=== PATIENT | male | born 1935 | race Caucasian/White ===

== ENCOUNTER 2016-11-08 13:52 | Emergency (ER) | payer OTHER ==
[~2016-11-08] VITALS: Ht 180.3 cm; Wt 89.1 kg
[~2016-11-08 13:52] MED LIST: ASPI81TA28 PO; ATEN-173 PO; CLC100X PO; KRIL1CAP2; LCTX PO; LPT/40 PO; LVQ250 PO; METF-384 PO; MULT-190 PO; SALI0.6510 NAE; TMF75 PO; [UNRECOGNIZED DRUG - CODE] PO
[2016-11-08 13:57] VITALS: TEMP 36.4; Ht 180.3 cm; Wt 89.1 kg
[2016-11-08] MEDS ORDERED: TMPOPS15 OPB (14:25)
[2016-11-08] MEDS ORDERED: XYLOCAINE 1%/SOD BICARB 20 ML VIAL INFIL ONE (14:30)
[2016-11-08 15:14] VITALS: BP 131/86; PULSE 79; O2SAT 96
--- NOTE | 2016-11-09 21:19 | EMERGENCY ROOM VISIT NOTE ---
ED Visit Note First contact with patient: 14:20 Chief Complaint: Right elbow laceration. History of Present Illness: Mr. Rae is an 80-year-old white male who ambulates into the ED accompanied by his complaining of a posterior left elbow laceration. Patient reports approximately one hour ago he was walking backwards in his garage, tripped and fell while picking something up and landed on his right elbow causing a laceration. He reports before the fall he was not experiencing any lightheadedness or dizziness, the time of the fall he believes he had a glancing blow to the back of his head but did not have loss of consciousness and since the injury he has had no signs of head. Before arrival at the hospital his did control bleeding of his laceration but did not wash the wound. He is not having any pain or symptoms related to the laceration and he denies headache, dizziness, lightheadedness, visual changes, hearing changes, difficulty speaking, difficulty swallowing, difficulty ambulating/coronary body movements, neck pain, back pain, nausea, vomiting, extremity weakness/numbness/ tingling. Review of Systems: As noted above in history of present illness. 8 body systems were reviewed and found to be negative as noted above. Past Medical History: Diabetes, kidney disease, glaucoma, frequent UTIs. Current Medications: Glucophage, atenolol, fosinopril, ocuvite, Lipitor, aspirin , timolol. Allergies to Medications: Cipro. Social History: Patient is currently retired; he lives with his and feels safe in his home environment; he denies tobacco and alcohol use. Tetanus Immunization Status: Patient was unsure of tetanus status and when I offered refused obtaining. Physical Examination: Vital Signs: Date Time Temp Pulse Resp B/P Pulse Ox O2 Delivery O2 Flow Rate FiO2 11/08/16 15:14 79 16 131/86 96 11/08/16 13:57 36.4 74 24 118/78 95 Room Air GENERAL: 80-year-old male in no acute distress, nontoxic-appearing, afebrile and hemodynamically NEUROLOGICAL: Awake, alert and oriented to person, place and time. Answering questions appropriately and following commands. Normal gait. Good hand eye coordination. No focal motor sensory deficits. Cranial nerves II through grossly intact. Short-term and long-term recall. SKIN: Warm, dry and pink. Left Elbow: Over the olecranon process patient has a 2.8 cm full-thickness laceration. HEENT: Atraumatic and normocephalic. Skull: No bony deformity, depressions, tenderness, swelling or ecchymosis. No raccoon's eyes or kerns signs. No drainage from ears and air; no hemotympanum. PERRLA. EOMI without nystagmus. Sclera white and conjunctiva pink. No malocclusion. No intraoral trauma. Airway patent. BACK: No tenderness over the bony cervical and thoracic spine. Full range of motion of the cervical spine. LEFT UPPER EXTREMITY: No gross bony deformities. No tenderness throughout the shoulder, upper arm, elbow, forearm or wrist. Laceration over the posterior elbow as noted above. Full range of motion in all movements of the shoulder, elbow, forearm and wrist. All distal neurovascular statuses are intact and equal bilaterally. ED Course: Patient is assessed as noted above. Wound Repair: Complexity: Basic Verbal consent was obtained after the risks and benefits were explained. The skin was prepped with betadine and a sterile field set. Wound edges of the wound was anesthetized with 2.1 ml buffered 1% lidocaine. The wound was explored for foreign bodies and none found. Copious irrigation was performed using sterile saline. With direct pressure the bleeding subsided. Debridement was not performed. The wound edges were approximated using 5-0 Ethilon with 5 simple interrupted sutures. Hemostasis and excellent approximation was achieved. Antibacterial ointment and a sterile dressing applied. No complications and the patient tolerated the procedure well. Patient was educated about tonight's findings and instructed on his treatment plan; he verbalizes understanding and agreement with this plan. Clinical Impression: Laceration of the posterior elbow. Status post fall. Disposition: Patient discharged home in stable condition; prior to departure he was reassessed and subjectively reported pain and symptom-free. Plan: Comfort measures, wound care, signs of infection and signs of head injury were discussed with the patient and his Patient was encouraged to follow-up with personal physician or return ED for signs of infection and/or suture removal in 10-12 days. Patient was encouraged return the ED for any signs of head injury or any new/ concerning symptoms.
--- NOTE | 2016-11-12 09:38 | EDITING REQUIRED CODING QUERY ---
CODING QUERY To promote full compliance with coding requirements relating to patient care, provider participation is requested in all cases of embroiderer uncertainty. Please assist us with the question(s) below: Coding Question(s): Please clarify below, due to conflicting documentation, the laterality of the elbow laceration. ( x ) Right Elbow Laceration ( ) Left Elbow Laceration Physician's Response(s): Thank you Shirin Zamora Principal Diagnosis: "_that condition established after study, to be chiefly responsible for occasioning the admission of the patient to the hospital for care." Co-Existing Principal Diagnosis: "_when two or more diagnoses equally meet the criteria for principal diagnosis as determined by the circumstances of admission, diagnostic work up, and/or therapy provided, and the Alphabetic Index, Tabular List, or another coding guideline does not provide sequencing direction, any one of the diagnoses may be sequenced first." "When the physician has documented what appears to be a current diagnosis in the body of the record, but has not included the diagnosis in the final diagnostic statement, the physician should be asked whether the diagnosis should be added." (Source [facility] 2 QTR90. p3-4)
== END 2016-11-08 15:15 | disposition home or self-care (01) ==
LOC: C.EDB 13:54 → C.EDD 15:15
DX: S51.011A Laceration without foreign body of right elbow, initial encounter (principal); E11.9 Type 2 diabetes mellitus without complications; H40.9 Unspecified glaucoma; Z79.899 Other long term (current) drug therapy; Z79.84 Long term (current) use of oral hypoglycemic drugs; Z79.82 Long term (current) use of aspirin; W01.0XXA Fall on same level from slipping, tripping and stumbling without subsequent striking against object, initial encounter; Y93.01 Activity, walking, marching and hiking; Y92.018 Other place in single-family (private) house as the place of occurrence of the external cause; Y99.8 Other external cause status

== ENCOUNTER → 2017-04-16 | Outpatient (CLI) | payer OTHER ==
[~2017-04-16] MED LIST changes: -CLC100X PO; -LCTX PO; -LVQ250 PO; -TMF75 PO; +TMPOPS15 OPB
== END | disposition home or self-care (01) ==
LOC: C.LAB 10:37
PROVIDERS: ATTEND Urology
DX: C61 Malignant neoplasm of prostate (principal); N40.1 Benign prostatic hyperplasia with lower urinary tract symptoms; R35.1 Nocturia

== ENCOUNTER → 2017-08-28 | Outpatient (CLI) | payer OTHER | END | disposition home or self-care (01) | LOC: C.LAB 09:33 | PROVIDERS: ATTEND Nurse Practitioner Adult Health | DX: N39.0 Urinary tract infection, site not specified (principal) ==

== ENCOUNTER → 2018-01-22 | Outpatient (CLI) | payer OTHER | END | disposition home or self-care (01) | LOC: C.LAB 11:01 | PROVIDERS: ATTEND Urology | DX: R35.1 Nocturia (principal); R32 Unspecified urinary incontinence; N39.0 Urinary tract infection, site not specified ==

== ENCOUNTER 2023-06-24 20:34 | Inpatient (IN) ==
[2023-06-24] MEDS ORDERED: LIDOCAINE 1%/EPINEPHRINE 1:100,000 50 ML VIAL INFIL ONE (21:34)
[2023-06-24] MEDS ORDERED: LIDOCAINE 1%/EPINEPHRINE 1:100,000 20 ML VIAL INFIL STA (21:44)
[2023-06-24] MEDS ORDERED: SODIUM CHLORIDE 0.9% 500 ML IV SCH (21:45)
[2023-06-24 21:54] LABS: Basophils # (auto) 0.05 K/uL (0.00-0.20); Basophils % (auto) 0.3 %; Eosinophils # (auto) 0.17 K/uL (0.00-0.50); Eosinophils % (auto) 1.1 %; Hematocrit (blood only) 33.4 % (42.0-52.0); Immature Granulocytes % (auto) 0.7 %; Lymphocytes # (auto) 3.35 K/uL (1.20-3.40); Lymphocytes % (auto) 22.1 %; Mean Corpuscular Hemoglobin 29.1 pg (25.0-34.0); Mean Corpuscular Hgb Conc 32.9 g/dL (32.0-36.0); Mean Corpuscular Volume 88.4 fL (80.0-100.0); Mean Platelet Volume 9.7 fL (9.4-12.4); Monocytes # (auto) 1.92 K/uL (0.11-0.59); Monocytes % (auto) 12.7 %; Neutrophils # (auto) 9.56 K/uL (1.40-6.50); Neutrophils % (auto) 63.1 %; Platelet Count 369 K/uL (130-400); RDW Coefficient of Variation 12.7 % (11.5-14.5); RDW Standard Deviation 41.1 fL (36.4-46.3); Red Blood Count 3.78 M/uL (4.70-6.10); White Blood Count 15.15 K/ul (4.8-10.8)
[2023-06-24 22:13] LABS: Albumin Globulin Ratio 0.8 (0.9-2); Albumin Level 2.7 gm/dl (3.4-5.0); BUN Creatinine Ratio 18.4 (10-20); Bilirubin,Total 0.4 mg/dl (0.2-1.0); Calcium 8.3 mg/dl (8.6-10.3); Est GFR (African American) 74.8 ml/min; Est GFR (Non-African American) 64.6 ml/min; Globulin 3.6 gm/dl (2.5-4.0); Magnesium 1.5 mg/dl (1.7-2.4); Potassium 4.1 mmol/L (3.5-5.1); Total Protein 6.3 gm/dl (6.0-8.3)
[2023-06-24 22:18] LABS: Troponin I High Sensitivity 9.7 pg/ml (0-20)
[2023-06-24 22:27] LABS: Thyroid Stimulating Hormone 5.235 uIu/ml (0.300-4.500)
[2023-06-24] MEDS ORDERED: DIPHTHERIA/TETANUS/PERTUSSIS Vaccine (Tdap, Age 7+yrs) 0.5mL SYR/VL IM ONE (23:15)
--- NOTE | 2023-06-24 23:15 | Emergency Department Note ---
History of Present Illness General Chief complaint: Fall Stated complaint: FALL w/ LAC TO BACK OF HEAD Time Seen by Provider: 06/24/23 21:29 History of Present Illness This 87-year-old male [facility] for evaluation of [facility]. Patient states he got lightheaded and collapsed and hit his head. Patient denies loss of conscious, headache, neck pain, back pain, chest pain, abdominal pain, fever, chills, flulike illness. He was hypotensive per EMS was given some fluids and his blood pressure did improve. He states he has been eating and drinking normally. Unknown tetanus. Home Medications Medication Instructions Recorded Confirmed Type atenolol 50 mg tablet PO 03/31/19 05/17/20 History atorvastatin 10 mg tablet (Lipitor) 10 mg PO DAILY 04/01/19 05/17/20 History fosinopril 10 mg tablet 10 mg PO DAILY 04/01/19 05/17/20 History metformin 500 mg tablet,extended 500 mg PO QPM 04/01/19 05/17/20 History release 24 hr multivitamin (Daily Multi-Vitamin 1 tab PO DAILY 04/01/19 05/17/20 History tablet) timolol maleate 0.25 % eye drops 1 drops ophthalmic (eye) BID 04/01/19 05/17/20 History doxycycline hyclate 100 mg tablet 100 mg PO BID 7 days #14 tabs 03/10/21 Rx Allergies Allergy/AdvReac Type Severity Reaction Status Date / Time Cipro Allergy Unknown RASH Verified 11/08/16 14:22 ciprofloxacin Allergy Unknown RASH Verified 05/17/20 08:22 Past Med/Surg History Medical History (Updated 06/24/23 @ 23:45 by Alis Pereira PA-C) Adenocarcinoma of prostate Enlarged prostate with lower urinary tract symptoms (LUTS) Laceration Male stress incontinence Nocturia Prostate cancer Urinary incontinence Urinary symptom or sign Surgical History No pertinent past surgical history Family History Other No pertinent family history in first degree relatives Social History Smoking Status: Never smoker marital status: Feels Safe at Home: Yes Review of Systems A total of 10 systems reviewed and were otherwise negative Physical Exam Vital Signs Vital Signs - 24 hr 06/24/23 21:17 06/24/23 20:52 06/24/23 21:00 Temperature 36.6 C Temperature Source Oral Pulse Rate 61 60 61 Pulse Rate [Apical] Respiratory Rate 15 17 19 Respiratory Effort / Characteristics Non-Labored Respiratory Depth Normal Respiratory Pattern Blood Pressure 99/56 L 84/46 L 85/52 L Blood Pressure [Left Arm] Blood Pressure Mean 70 58 63 Blood Pressure Mean [Left Arm] Blood Pressure Position [Left Arm] Pulse Oximetry 97 95 95 Oxygen Delivery Method Room Air Room Air Room Air Sepsis Recent Fever Within 48 Hours No Sepsis New/Unexplained Change in Mental Status N/A Sepsis Action Taken by Nursing No Action Required 06/24/23 21:15 06/24/23 21:30 06/24/23 21:45 Temperature Temperature Source Pulse Rate 64 62 60 Pulse Rate [Apical] Respiratory Rate 21 24 20 Respiratory Effort / Characteristics Respiratory Depth Respiratory Pattern Blood Pressure 99/56 L 98/57 L 102/56 L Blood Pressure [Left Arm] Blood Pressure Mean 70 70 71 Blood Pressure Mean [Left Arm] Blood Pressure Position [Left Arm] Pulse Oximetry 95 94 95 Oxygen Delivery Method Room Air Room Air Room Air Sepsis Recent Fever Within 48 Hours Sepsis New/Unexplained Change in Mental Status Sepsis Action Taken by Nursing 06/24/23 22:00 06/24/23 22:30 06/24/23 22:45 Temperature Temperature Source Pulse Rate 58 L 60 59 L Pulse Rate [Apical] Respiratory Rate 19 15 16 Respiratory Effort / Characteristics Respiratory Depth Respiratory Pattern Blood Pressure 97/57 L 98/59 L 101/56 L Blood Pressure [Left Arm] Blood Pressure Mean 70 72 71 Blood Pressure Mean [Left Arm] Blood Pressure Position [Left Arm] Pulse Oximetry 97 98 97 Oxygen Delivery Method Room Air Room Air Room Air Sepsis Recent Fever Within 48 Hours Sepsis New/Unexplained Change in Mental Status Sepsis Action Taken by Nursing 06/24/23 23:45 Temperature Temperature Source Pulse Rate Pulse Rate [Apical] 57 L Respiratory Rate 20 Respiratory Effort / Characteristics Non-Labored Respiratory Depth Normal Respiratory Pattern Regular Blood Pressure Blood Pressure [Left Arm] 115/62 Blood Pressure Mean Blood Pressure Mean [Left Arm] 79 Blood Pressure Position [Left Arm] Lying Pulse Oximetry 99 Oxygen Delivery Method Room Air Sepsis Recent Fever Within 48 Hours Sepsis New/Unexplained Change in Mental Status Sepsis Action Taken by Nursing PHYSICAL EXAM: VITALS: Vitals are noted on the nurse's note and reviewed by myself. Vital signs stable. GENERAL: Pleasant gentleman, in no acute distress, nondiaphoretic, well- developed well-nourished. SKIN: 3 cm posterior scalp laceration is gaping appears clean, the rest of the skin was without obvious lacerations or abrasions. Capillary reflex less than 2 seconds. HEAD: Normocephalic EARS: External auditory canals clear, tympanic membranes pearly ames without erythema or effusion bilaterally. No hemotympanums. No kerns sign. No mastoid tenderness. EYES: Pupils equal round and reactive to light and accommodation. Conjunctivae without injection, sclerae without icterus. Extraocular movements intact. NOSE: Patent, turbinates without inflammation or discharge. No sinus tenderness. No septal hematoma or bleeding. FACE: No facial bone tenderness. Full range of motion of the jaw without tenderness. MOUTH: Mucous membranes moist. Pharynx without erythema or exudate. Uvula midline. Airway patent. Tongue does not deviate. NECK: Supple without nuchal rigidity. Cervical spine is nontender. Full range of motion of the neck without tenderness. No JVD. HEART: Regular rate and rhythm LUNGS: Clear to auscultation bilaterally without wheezes, rales or rhonchi. No dullness to percussion. No retractions or accessory muscle use. No chest wall tenderness. ABDOMEN: Positive bowel sounds x 4. Normal tympanic percussion. Soft, n ontender, without masses or organomegaly. No guarding or rebound tenderness. MUSCULOSKELETAL: No tenderness of the thoracic or lumbar spine. No tenderness with pelvic rocking. Full range of motion without tenderness to palpation in all extremities. Strength 5/5 throughout. NEURO: Patient was alert and oriented to person place and time. Normal sensation to light and sharp touch. No focal neurological deficits. Course Administered Medications Magnesium Sulfate/Dextrose (Magnesium Sulfate / D5w) 1 gm in 100 mls @ 100 mls/hr IV Q1H DUY Stop: 06/25/23 01:17 Last Admin: 06/24/23 23:38 Dose: 100 mls/hr Documented By: BRJ Discontinued Medications Diphtheria/Pertussis/Tetanus Vacc (Diphtheria/Tetanus/Pertussis Vaccine (Tdap, Age 7+Yrs) 0.5ml Syr/Vl) 0.5 ml IM .ONCE ONE Stop: 06/24/23 23:16 Last Admin: 06/24/23 23:41 Dose: 0.5 ml Documented By: SITA Sodium Chloride (Nss) 500 mls @ 999 mls/hr IV .Q31M DUY Stop: 06/24/23 22:15 Last Admin: 06/24/23 21:48 Dose: 999 mls/hr Documented By: ALINA Lidocaine/Epinephrine (Lidocaine 1%/Epinephrine 1:100,000 20 Ml Vial) 5 ml INFIL NOW STA Stop: 06/24/23 21:45 Last Admin: 06/24/23 23:42 Dose: 5 ml Documented By: CELESTINA Medical Decision Making Medical Records Attestation: I reviewed the patient's medical records. Home Medications Current Medication List: was personally reviewed by me Laboratory Data Attestation: I reviewed the patient's lab results. 06/24/23 20:54 06/24/23 20:54 Lab Results 06/24/23 06/24/23 06/24/23 Range/Units 20:54 20:54 21:52 WBC 15.15 H (4.8-10.8) K/ul RBC 3.78 L (4.70-6.10) M/uL Hgb 11.0 L (14.0-18.0) g/dl Hct 33.4 L (42.0-52.0) % MCV 88.4 (80.0-100.0) fL MCH 29.1 (25.0-34.0) pg MCHC 32.9 (32.0-36.0) g/dL RDW Std Deviation 41.1 (36.4-46.3) fL RDW Coeff of Maya 12.7 (11.5-14.5) % Plt Count 369 (130-400) K/uL MPV 9.7 (9.4-12.4) fL Immature Gran % (Auto) 0.7 % Neut % (Auto) 63.1 % Lymph % (Auto) 22.1 % [place] % (Auto) 12.7 % Eos % (Auto) 1.1 % Baso % (Auto) 0.3 % Neut # (Auto) 9.56 H (1.40-6.50) K/uL Lymph # (Auto) 3.35 (1.20-3.40) K/uL [place] # (Auto) 1.92 H (0.11-0.59) K/uL Eos # (Auto) 0.17 (0.00-0.50) K/uL Baso # (Auto) 0.05 (0.00-0.20) K/uL Immature Gran # (Auto) 0.10 (0.01-0.20) K/uL Sodium 132 L (136-145) mmol/L Potassium 4.1 (3.5-5.1) mmol/L Chloride 101 (98-107) mmol/L Carbon Dioxide 24 (21-32) mmol/L Anion Gap 7 (3-11) BUN 19 (6-23) mg/dl Creatinine 1.03 (0.6-1.4) mg/dl Est Cr Clr Drug Dosing 52.0 ml/min Est GFR ( Amer) 74.8 ml/min Est GFR (Non-Af Amer) 64.6 ml/min BUN/Creatinine Ratio 18.4 (10-20) Glucose 248 H (70-99(Fasting)) mg/dl POC Glucose (70-99) mg/dl Calcium 8.3 L (8.6-10.3) mg/dl Magnesium 1.5 L (1.7-2.4) mg/dl Total Bilirubin 0.4 (0.2-1.0) mg/dl AST 15 (13-39) U/L ALT 13 (7-52) U/L Alkaline Phosphatase 97 (34-104) U/L Total Creatine Kinase 16 L (30-223) U/L Troponin I High Sens 9.7 (0-20) pg/ml Total Protein 6.3 (6.0-8.3) gm/dl Albumin 2.7 L (3.4-5.0) gm/dl Globulin 3.6 (2.5-4.0) gm/dl Albumin/Globulin Ratio 0.8 L (0.9-2) TSH 5.235 H (0.300-4.500) uIu/ml Free T4 0.91 (0.61-1.60) ng/dl Urine Color Urine Appearance (Clear) Urine pH (4.5-7.5) Ur Specific [place] (1.000-1.030) Urine Protein (Negative) Urine Glucose (UA) (Negative) Urine Ketones (Negative) Urine Blood (Negative) Urine Nitrite (Negative) Urine Bilirubin (Negative) Urine Urobilinogen (Negative) Ur Leukocyte Esterase (Negative) Urine WBC (Auto) (0-5) /hpf Urine RBC (Auto) (0-4) /hpf U Hyaline Cast (Auto) (0-5) /lpf U Epithel Cells (Auto) (0-5) /lpf Urine Bacteria (Auto) (Negative) SARS-CoV-2 (PCR) NEGATIVE (Negative) 06/24/23 06/24/23 Range/Units 23:21 23:30 WBC (4.8-10.8) K/ul RBC (4.70-6.10) M/uL Hgb (14.0-18.0) g/dl Hct (42.0-52.0) % MCV (80.0-100.0) fL MCH (25.0-34.0) pg MCHC (32.0-36.0) g/dL RDW Std Deviation (36.4-46.3) fL RDW Coeff of Maya (11.5-14.5) % Plt Count (130-400) K/uL MPV (9.4-12.4) fL Immature Gran % (Auto) % Neut % (Auto) % Lymph % (Auto) % [place] % (Auto) % Eos % (Auto) % Baso % (Auto) % Neut # (Auto) (1.40-6.50) K/uL Lymph # (Auto) (1.20-3.40) K/uL [place] # (Auto) (0.11-0.59) K/uL Eos # (Auto) (0.00-0.50) K/uL Baso # (Auto) (0.00-0.20) K/uL Immature Gran # (Auto) (0.01-0.20) K/uL Sodium (136-145) mmol/L Potassium (3.5-5.1) mmol/L Chloride (98-107) mmol/L Carbon Dioxide (21-32) mmol/L Anion Gap (3-11) BUN (6-23) mg/dl Creatinine (0.6-1.4) mg/dl Est Cr Clr Drug Dosing ml/min Est GFR ( Amer) ml/min Est GFR (Non-Af Amer) ml/min BUN/Creatinine Ratio (10-20) Glucose (70-99(Fasting)) mg/dl POC Glucose 205 H (70-99) mg/dl Calcium (8.6-10.3) mg/dl Magnesium (1.7-2.4) mg/dl Total Bilirubin (0.2-1.0) mg/dl AST (13-39) U/L ALT (7-52) U/L Alkaline Phosphatase (34-104) U/L Total Creatine Kinase (30-223) U/L Troponin I High Sens (0-20) pg/ml Total Protein (6.0-8.3) gm/dl Albumin (3.4-5.0) gm/dl Globulin (2.5-4.0) gm/dl Albumin/Globulin Ratio (0.9-2) TSH (0.300-4.500) uIu/ml Free T4 (0.61-1.60) ng/dl Urine Color Yellow Urine Appearance Turbid A (Clear) Urine pH 5.5 (4.5-7.5) Ur Specific [place] 1.008 (1.000-1.030) Urine Protein 1+ H (Negative) Urine Glucose (UA) Negative (Negative) Urine Ketones Negative (Negative) Urine Blood 1+ H (Negative) Urine Nitrite Positive A (Negative) Urine Bilirubin Negative (Negative) Urine Urobilinogen Negative (Negative) Ur Leukocyte Esterase 3+ H (Negative) Urine WBC (Auto) >30 H (0-5) /hpf Urine RBC (Auto) 0-4 (0-4) /hpf U Hyaline Cast (Auto) 1-5 (0-5) /lpf U Epithel Cells (Auto) 20-30 H (0-5) /lpf Urine Bacteria (Auto) Negative (Negative) SARS-CoV-2 (PCR) (Negative) Imaging Data Attestation: I personally reviewed and interpreted this imaging study as follows: Radiologist's Impression: Cervical Spine CT 06/24/23 21:34 Exam(s): CT C SPINE EXAM: CT Cervical Spine Without Intravenous Contrast CLINICAL HISTORY: Reason for exam: fall, HI. TECHNIQUE: Axial computed tomography images of the cervical spine without intravenous contrast. CTDI is 22.54 mGy and DLP is 527.17 mGy-cm. Automated exposure control was utilized for the study. A dose lowering technique was utilized adhering to the principles of ALARA. COMPARISON: None. FINDINGS: Vertebrae: No acute fracture. 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 No high-grade spinal canal stenosis. Soft tissues: Unremarkable. IMPRESSION: No acute fracture or traumatic malalignment of the cervical spine. Electronically signed by: Curtis Curran MD 06/24/23 23:[address] 06/24/23 21:34 Exam(s): CT HEAD Without Contrast EXAM: CT Head Without Intravenous Contrast CLINICAL HISTORY: Reason for exam: fall, HI. TECHNIQUE: Axial computed tomography images of the head/brain without intravenous contrast. CTDI is 37.61 mGy and DLP is 624.41 mGy-cm. Automated exposure control was utilized for the study. A dose lowering technique was utilized adhering to the principles of ALARA. COMPARISON: CT head 09/02/2014. FINDINGS: Brain: Global parenchymal volume loss with chronic microvascular ischemic changes. No hemorrhage. Ventricles: Ventriculomegaly likely related to parenchymal volume loss. Bones/joints: Unremarkable. No acute fracture. Soft tissues: Unremarkable. Vasculature: This indices in the calvarium may represent intraosseous low-flow venous malformations, not significantly changed from prior exam. Sinuses: Unremarkable as visualized. Mastoid air cells: Unremarkable as visualized. No mastoid effusion. IMPRESSION: 1. No intracranial hemorrhage or other acute intracranial abnormality. 2. Global parenchymal volume loss with chronic microvascular ischemic changes. Electronically signed by: Curtis Curran MD 06/24/23 23:56 PM MDM Narrative Prior records/ancillary studies reviewed and summarized above. Nursing notes reviewed. Additional history obtained from nursing. The patient's history was concerning for lightheadedness and fall. Differential diagnosis: Etiologies such as metabolic, infection, hypo/hyperglycemia, electrolyte abnormalities, cardiac sources, intracerebral event, toxicologic, neurologic, as well as others were entertained. Physical examination: As above. ER treatment provided: IV Lock An order was placed for continuous cardiac monitoring. The monitor shows a rate of 50-100 with a sinus rhythm per my interpretation. IV fluids Staple Repair Location: Scalp Total length: 3 cm Complexity: Simple Verbal consent was obtained after the risks and benefits were explained, including but not limited to bleeding, scarring, infection, pain, and bone/nerve damage. At this time, the risks of the procedure are less than the risks of NOT performing the procedure. A time out was taken and the correct patient and site identified. The scalp was prepped with betadine. The target area was anesthetized with 2 ml of 1% lidocaine without epinephrine. Copious irrigation was performed using saline. The skin was re-prepped with betadine, the hair cleared from the wound, and a sterile field set. The wound was explored for foreign bodies and none found. Debridement was not performed. The wound edges were approximated using 5 surgical francisco in the standard fashion. Hemostasis and excellent approximation was achieved. Antibacterial ointment and a sterile dressing applied. Detailed wound care instructions and signs and symptoms of infection reviewed with the pt. No complications and the patient tolerated the procedure well. I performed the procedure. Tetanus was given Magnesium was ordered Rocephin was ordered for UTI On reassessment the patient felt better. Diagnostics interpretation by me: ECG: Ordered for weakness EKG: Normal sinus, left axis, incomplete right bundle, no acute ST-T wave changes. Impression normal sinus incomplete right bundle left axis independently interpreted by myself The labs Independently Interpreted by myself revealed leukocytosis Low magnesium Hyperglycemia without DKA Urine concerning for infection on dip and sent for culture [address], [place] [address] / Director: Gigi Herrera M.D. Clinical Laboratory Report Name: JAYLIN CASTRO Acct: [id number] Status: DEP : 1935 [facility] – [place] Date: 11/16/22 Age: 87 Sex: M Dis Date: Loc: Laboratory Specimen Drop Off Spec: [id number] Collected: 11/15/22 Received: 11/16/[address]: Claire Banks CRNP Source: Urine,Clean Catch OV Order: Ordered: Urine Culture Procedure Result Verified Site Urine Culture Final 11/18/22 Organism 1 Escherichia coli [place] Count >100,000 CFU/ml Sens Sensitivities to Follow E coli RX M.I.C. --- --------- Amox/Clav S <=8/4 Ampicillin R >16 Amp/Sul S <=8/4 Cefazolin S <=2 Cefepime S <=2 Ceftriaxone S <=1 Ciprofloxacin S <=0.25 Ertapenem S <=0.5 Gentamicin S <=4 Levofloxacin S <=0.5 Meropenem S <=1 Nitrofurantoin S <=32 Tobramycin S <=4 Trimeth/Sulfa R > Pip/Tazo S <=16 S = SENSITIVE I = INTERMEDIATE R = RESISTANT Name: JAYLIN CASTRO : 1935 PAGE 1 Printed: 06/24/23 1713 END OF REPORT Imaging studies: CXR With possible right lower lobe Consolidation per my independent interpretation. Patient was given Rocephin for UTI already Head and cervical CTs are negative for intracranial bleed or fracture per my independent rotation and per radiology as above Consultation: A consultation was placed with the hospitalist. The case was discussed and diagnostics were reviewed. The patient was evaluated in the ER for further treatment. Exam and history seem consistent with weakness, head injury, scalp laceration, low magnesium and UTI. Patient most likel felt weak from his UTI. He was started on antibiotics. Prior urine culture was reviewed. Laceration was repaired as above. Medicine was consulted case discussed. He will be admitted to the medical service for further evaluation and treatment. By the evaluation outlined above emergent etiologies such as electrolyte abnormalities, cardiac sources, intracerebral event, toxologic, neurologic, abnormalities blood glucose, metabolic, as well as others were deemed relatively unlikely. The pt informed about the findings as listed above. All questions were answered and pleased with the treatment. The chart was completed utilizing Dragon Speech voice recognition software. Grammatical errors, random word insertions, pronoun errors, and incomplete sentences are an occassional consequence of this system due to software limitations, ambient noise, and hardware issues. Any formal questions or concerns about the content, text, or information contained within the body of this dictation should be directly addressed to the physician conventions assistant for clarification. Impression & Plan Acute UTI, Weakness, Fall, Head injury, Laceration of scalp, Hypomagnesemia Discharge Plan Visit Data Chief Complaint: Fall Stated Complaint: FALL w/ LAC TO BACK OF HEAD ED Provider: Darren Sesay ED Midlevel Provider: Alis Pereira Discharge Problem: Acute UTI, Weakness, Fall, Head injury, Laceration of scalp, Hypomagnesemia Patient Disposition: Admitted As Inpatient Condition: Good Forms Stand Alone Forms: [facility] [employer] Prescriptions Prescriptions: No Action doxycycline hyclate 100 mg tablet 100 mg PO BID 7 Days Qty: 14 0RF atenolol 50 mg tablet PO fosinopril 10 mg tablet 10 mg PO DAILY atorvastatin [Lipitor] 10 mg tablet 10 mg PO DAILY metformin 500 mg tablet extended release 24 hr 500 mg PO QPM multivitamin [Daily Multi-Vitamin] tablet 1 tab PO DAILY timolol maleate 0.25 % drops 1 drops OP BID Referrals Referrals: [place] [Primary Care Provider] -
[2023-06-24 23:33] LABS: T4 Free Thyroxine 0.91 ng/dl (0.61-1.60)
[2023-06-24] MEDS: MAGNESIUM SULFATE / D5W 1 GM/100 ML BAG IV SCH (23:38)
[2023-06-24] MEDS ORDERED: cefTRIAXone SODIUM 2,000 MG/50 ML BAG IV STA (23:39)
[2023-06-24 23:44] LABS: Appearance Urine Turbid (Clear); Bacteria Urine Automated Negative (Negative); Bilirubin Urine Negative (Negative); Blood Urine 1+ (Negative); Color Urine Yellow; Epithelial Cell Urine Auto 20-30 /lpf (0-5); Glucose Urine UA Negative (Negative); Ketones Urine Negative (Negative); Leukocyte Esterase Urine 3+ (Negative); Nitrite Urine Positive (Negative); Protein Urine 1+ (Negative); RBC Urine Automated 0-4 /hpf (0-4); Specific Gravity Urine 1.008 (1.000-1.030); Urobilinogen Urine Negative (Negative); WBC Urine Automated >30 /hpf (0-5); pH Urine 5.5 (4.5-7.5)
--- NOTE | 2023-06-24 23:57 | CT Scan Report ---
Exam(s): CT HEAD Without Contrast EXAM: CT Head Without Intravenous Contrast CLINICAL HISTORY: Reason for exam: fall, HI. TECHNIQUE: Axial computed tomography images of the head/brain without intravenous contrast. CTDI is 37.61 mGy and DLP is 624.41 mGy-cm. Automated exposure control was utilized for the study. A dose lowering technique was utilized adhering to the principles of ALARA. COMPARISON: CT head 09/02/2014. FINDINGS: Brain: Global parenchymal volume loss with chronic microvascular ischemic changes. No hemorrhage. Ventricles: Ventriculomegaly likely related to parenchymal volume loss. Bones/joints: Unremarkable. No acute fracture. Soft tissues: Unremarkable. Vasculature: This indices in the calvarium may represent intraosseous low-flow venous malformations, not significantly changed from prior exam. Sinuses: Unremarkable as visualized. Mastoid air cells: Unremarkable as visualized. No mastoid effusion. IMPRESSION: 1. No intracranial hemorrhage or other acute intracranial abnormality. 2. Global parenchymal volume loss with chronic microvascular ischemic changes. Electronically signed by: Curtis Curran MD 06/24/23 23:56 PM
--- NOTE | 2023-06-25 | CT Scan Report ---
Exam(s): CT C SPINE EXAM: CT Cervical Spine Without Intravenous Contrast CLINICAL HISTORY: Reason for exam: fall, HI. TECHNIQUE: Axial computed tomography images of the cervical spine without intravenous contrast. CTDI is 22.54 mGy and DLP is 527.17 mGy-cm. Automated exposure control was utilized for the study. A dose lowering technique was utilized adhering to the principles of ALARA. COMPARISON: None. FINDINGS: Vertebrae: No acute fracture. 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 No high-grade spinal canal stenosis. Soft tissues: Unremarkable. IMPRESSION: No acute fracture or traumatic malalignment of the cervical spine. Electronically signed by: Curtis Curran MD 06/24/23 23:58 PM
--- NOTE | 2023-06-25 00:17 | Emergency Department Note ---
ED Visit Note I was consulted in regards to the patient's presentation and plan of care by the Advanced Practice Provider. I engaged in a detailed/meaningful discussion with the Advanced Practice Provider in regards to this patient's workup and plan of care. Please see the Advanced Practice Provider's note for full details of the patient encounter. Darren Sesay, DO Emergency Medicine .
[2023-06-25] MEDS: MAGNESIUM SULFATE / D5W 1 GM/100 ML BAG IV SCH (00:55)
--- NOTE | 2023-06-25 01:17 | History & Physical Report ---
Date of Service June 25, 2023 Assessment & Plan (1) Fall: Plan: 87-year-old male with past med significant for type 2 diabetes, dyslipidemia, allergic rhinitis, hypertension, urinary incontinence, stress incontinence, lumbar degenerative disease, sensorineural hearing loss bilateral, glaucoma, history of abnormal gait and risk of falls, depression, who lives in [facility] was brought in because of fall and found to have UTI and hypotension on presentation. Fall Hypotension improved with fluids UTI IV fluids IV Rocephin PT OT Orthostatics Close monitor History of hypertension Hold fosinopril for now as patient had hypotension on presentation We will monitor History of glaucoma Continue home eyedrops Diabetes Hold metformin Sliding scale We will monitor Depression Lexapro DVT prophylax SCDs for now Disposition med/telemetry Full code History of Present Illness Chief Complaint: Fall, hypotension and UTI Primary Care Provider: [facility] 87-year-old male with past med significant for type 2 diabetes, dyslipidemia, allergic rhinitis, hypertension, urinary incontinence, stress incontinence, lumbar degenerative disease, sensorineural hearing loss bilateral, glaucoma, history of abnormal gait and risk of falls, depression, who lives in [facility] was brought in because of fall and found to have UTI and hypotension on presentation. Patient states he was maneuvering his rollator when he slipped and fell backwards and hit his back of his head. No loss of conscious. Patient says he was able to get up. In the ER patient was hypotensive and improved with fluids. Denies any chest pain or shortness of breath. Denies any headache or dizziness. 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 No runny nose or sore throat or cough. No difficulty swallowing. States he is eating and drinking okay. No nausea. No abdominal pain. Normal bowel and bladder movements. Past medical history. As mentioned above. Past surgical history. Biopsy of prostate. Cataract surgery. Colonoscopy. Cystoscopy. EGD. Sinus surgery. TURP. Social history. No smoking. No alcohol. No drug use. Family history. Father had heart disorder. Mother had CAD. Brother had parkinsonism. Allergies Allergy/AdvReac Type Severity Reaction Status Date / Time Cipro Allergy Unknown RASH Verified 11/08/16 14:22 ciprofloxacin Allergy Unknown RASH Verified 05/17/20 08:22 Home Medications Medication Instructions Recorded Confirmed Type fosinopril 10 mg tablet 5 mg PO DAILY 04/01/19 06/25/23 History acetaminophen 325 mg tablet 650 mg PO Q6 PRN Pain 06/25/23 06/25/23 History brimonidine 0.2 % eye drops 1 drp OPB BID 06/25/23 06/25/23 History cyanocobalamin (vitamin B-12) 1,000 mcg PO DAILY 06/25/23 06/25/23 History 1,000 mcg tablet (Vitamin B-12) diphenoxylate-atropine 2.5 1 tab PO QAM 06/25/23 06/25/23 History mg-0.025 mg tablet dorzolamide 2 % eye drops 1 drp OPL BID 06/25/23 06/25/23 History escitalopram oxalate 10 mg tablet 10 mg PO DAILY 06/25/23 06/25/23 History latanoprost 0.005 % eye drops 1 drp OPL HS 06/25/23 06/25/23 History metformin 500 mg tablet,extended 1,000 mg PO HS 06/25/23 06/25/23 History release 24 hr timolol maleate 0.5 % eye drops 1 drp OPB BID 06/25/23 06/25/23 History Past Med/Surg History Medical History (Updated 06/24/23 @ 23:45 by Alis Pereira PA-C) Adenocarcinoma of prostate Enlarged prostate with lower urinary tract symptoms (LUTS) Laceration Male stress incontinence Nocturia Prostate cancer Urinary incontinence Urinary symptom or sign Surgical History No pertinent past surgical history Family History Other No pertinent family history in first degree relatives Social History Smoking Status: Never smoker Hx Alcohol Use: No Hx Substance Use: No Preferred Language: Armenian Communication Ability: Effective Interface Engineer Required: Voice Beliefs That Will Affect Care: None marital status: Current Living Situation: Personal Care Facility Current Living Situation Comment: [facility] [employer] [facility] Other Information That Helps Us Care for You: No Feels Safe at Home: Yes Safety Concerns: Feels Safe At This Time Assistive Devices: Walker Assistive Devices Comment: rollator Review of Systems Review of Systems: All systems reviewed & are unremarkable except as noted in HPI & below Physical Exam Physical Exam: General- not in distress Head- one inch superficial cut seen on back of the head Eyes- PERRL ENT- oropharynx clear Neck- supple, no JVD, Lungs- clear to auscultation no wheezing or crackles. Heart- regular rhythm; no murmur, no gallop. Abdomen- normal bowel sounds, soft, nontender, no distension. Extremities- no pretibial edema, no erythema seen. Neuro- alert, oriented x 3; PERRL,no facial palsy; no dysarthria; obeys commands, moves extremities. Skin- warm & dry Results & Data Results & Data Vital Signs (Past 12 Hours) Vital Signs Temp Pulse Pulse Resp BP BP Pulse Ox 06/25/23 00:50 57 L 19 98 06/25/23 00:40 59 L 19 95 06/25/23 00:30 57 L 19 99 06/25/23 00:30 105/64 06/25/23 00:20 57 L 16 98 06/25/23 00:10 59 L 20 98 06/25/23 00:00 57 L 17 98 06/25/23 00:00 109/64 06/24/23 23:50 58 L 20 98 06/24/23 23:40 57 L 16 98 06/24/23 23:30 65 18 99 06/24/23 23:30 115/62 06/24/23 23:20 61 20 95 06/24/23 23:20 101/61 06/24/23 23:10 60 19 95 06/24/23 23:00 59 L 20 96 06/24/23 23:00 97/58 L 06/24/23 23:45 57 L 20 115/62 99 06/24/23 22:45 59 L 16 101/56 L 97 06/24/23 22:30 60 15 98/59 L 98 06/24/23 22:00 58 L 19 97/57 L 97 06/24/23 21:45 60 20 102/56 L 95 06/24/23 21:30 62 24 98/57 L 94 06/24/23 21:15 64 21 99/56 L 95 06/24/23 21:00 61 19 85/52 L 95 06/24/23 20:52 60 17 84/46 L 95 06/24/23 21:17 36.6 C 61 15 99/56 L 97 O2 Del Method 06/25/23 00:50 06/25/23 00:40 06/25/23 00:30 06/25/23 00:30 06/25/23 00:20 06/25/23 00:10 06/25/23 00:00 06/25/23 00:00 06/24/23 23:50 06/24/23 23:40 06/24/23 23:30 06/24/23 23:30 06/24/23 23:20 06/24/23 23:20 06/24/23 23:10 06/24/23 23:00 06/24/23 23:00 06/24/23 23:45 Room Air 06/24/23 22:45 Room Air 06/24/23 22:30 Room Air 06/24/23 22:00 Room Air 06/24/23 21:45 Room Air 06/24/23 21:30 Room Air 06/24/23 21:15 Room Air 06/24/23 21:00 Room Air 06/24/23 20:52 Room Air 06/24/23 21:17 Room Air Diagnostic Findings Laboratory Results WBC 15.15 K/ul (4.8-10.8) H 06/24/23 20:54 RBC 3.78 M/uL (4.70-6.10) L 06/24/23 20:54 Hgb 11.0 g/dl (14.0-18.0) L 06/24/23 20:54 Hct 33.4 % (42.0-52.0) L 06/24/23 20:54 MCV 88.4 fL (80.0-100.0) 06/24/23 20:54 MCH 29.1 pg (25.0-34.0) 06/24/23 20:54 MCHC 32.9 g/dL (32.0-36.0) 06/24/23 20:54 RDW Std Deviation 41.1 fL (36.4-46.3) 06/24/23 20:54 RDW Coeff of Maya 12.7 % (11.5-14.5) 06/24/23 20:54 Plt Count 369 K/uL (130-400) 06/24/23 20:54 MPV 9.7 fL (9.4-12.4) 06/24/23 20:54 Immature Gran % (Auto) 0.7 % 06/24/23 20:54 Neut % (Auto) 63.1 % 06/24/23 20:54 Lymph % (Auto) 22.1 % 06/24/23 20:54 [place] % (Auto) 12.7 % 06/24/23 20:54 Eos % (Auto) 1.1 % 06/24/23 20:54 Baso % (Auto) 0.3 % 06/24/23 20:54 Neut # (Auto) 9.56 K/uL (1.40-6.50) H 06/24/23 20:54 Lymph # (Auto) 3.35 K/uL (1.20-3.40) 06/24/23 20:54 [place] # (Auto) 1.92 K/uL (0.11-0.59) H 06/24/23 20:54 Eos # (Auto) 0.17 K/uL (0.00-0.50) 06/24/23 20:54 Baso # (Auto) 0.05 K/uL (0.00-0.20) 06/24/23 20:54 Immature Gran # (Auto) 0.10 K/uL (0.01-0.20) 06/24/23 20:54 Sodium 132 mmol/L (136-145) L 06/24/23 20:54 Potassium 4.1 mmol/L (3.5-5.1) 06/24/23 20:54 Chloride 101 mmol/L (98-107) 06/24/23 20:54 Carbon Dioxide 24 mmol/L (21-32) 06/24/23 20:54 Anion Gap 7 (3-11) 06/24/23 20:54 BUN 19 mg/dl (6-23) 06/24/23 20:54 Creatinine 1.03 mg/dl (0.6-1.4) 06/24/23 20:54 Est Cr Clr Drug Dosing 52.0 ml/min 06/24/23 20:54 Est GFR ( Amer) 74.8 ml/min 06/24/23 20:54 Est GFR (Non-Af Amer) 64.6 ml/min 06/24/23 20:54 BUN/Creatinine Ratio 18.4 (10-20) 06/24/23 20:54 Glucose 248 mg/dl (70-99(Fasting)) H 06/24/23 20:54 POC Glucose 205 mg/dl (70-99) H 06/24/23 23:21 Lactate 2.3 mmol/L (0.4-2.0) H* 06/25/23 00:13 Calcium 8.3 mg/dl (8.6-10.3) L 06/24/23 20:54 Magnesium 1.5 mg/dl (1.7-2.4) L 06/24/23 20:54 Total Bilirubin 0.4 mg/dl (0.2-1.0) 06/24/23 20:54 AST 15 U/L (13-39) 06/24/23 20:54 ALT 13 U/L (7-52) 06/24/23 20:54 Alkaline Phosphatase 97 U/L (34-104) 06/24/23 20:54 Total Creatine Kinase 16 U/L (30-223) L 06/24/23 20:54 Troponin I High Sens 9.7 pg/ml (0-20) 06/24/23 20:54 Total Protein 6.3 gm/dl (6.0-8.3) 06/24/23 20:54 Albumin 2.7 gm/dl (3.4-5.0) L 06/24/23 20:54 Globulin 3.6 gm/dl (2.5-4.0) 06/24/23 20:54 Albumin/Globulin Ratio 0.8 (0.9-2) L 06/24/23 20:54 TSH 5.235 uIu/ml (0.300-4.500) H 06/24/23 20:54 Free T4 0.91 ng/dl (0.61-1.60) 06/24/23 20:54 Urine Color Yellow 06/24/23 23:30 Urine Appearance Turbid (Clear) A 06/24/23 23:30 Urine pH 5.5 (4.5-7.5) 06/24/23 23:30 Ur Specific [place] 1.008 (1.000-1.030) 06/24/23 23:30 Urine Protein 1+ (Negative) H 06/24/23 23:30 Urine Glucose (UA) Negative (Negative) 06/24/23 23:30 Urine Ketones Negative (Negative) 06/24/23 23:30 Urine Blood 1+ (Negative) H 06/24/23 23:30 Urine Nitrite Positive (Negative) A 06/24/23 23:30 Urine Bilirubin Negative (Negative) 06/24/23 23:30 Urine Urobilinogen Negative (Negative) 06/24/23 23:30 Ur Leukocyte Esterase 3+ (Negative) H 06/24/23 23:30 Urine WBC (Auto) >30 /hpf (0-5) H 06/24/23 23:30 Urine RBC (Auto) 0-4 /hpf (0-4) 06/24/23 23:30 U Hyaline Cast (Auto) 1-5 /lpf (0-5) 06/24/23 23:30 U Epithel Cells (Auto) 20-30 /lpf (0-5) H 06/24/23 23:30 Urine Bacteria (Auto) Negative (Negative) 06/24/23 23:30 SARS-CoV-2 (PCR) NEGATIVE (Negative) 06/24/23 21:[address] 06/24/23 21:34 Exam(s): CT C SPINE EXAM: CT Cervical Spine Without Intravenous Contrast CLINICAL HISTORY: Reason for exam: fall, HI. TECHNIQUE: Axial computed tomography images of the cervical spine without intravenous contrast. CTDI is 22.54 mGy and DLP is 527.17 mGy-cm. Automated exposure control was utilized for the study. A dose lowering technique was utilized adhering to the principles of ALARA. COMPARISON: None. FINDINGS: Vertebrae: No acute fracture. 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 No high-grade spinal canal stenosis. Soft tissues: Unremarkable. IMPRESSION: No acute fracture or traumatic malalignment of the cervical spine. Electronically signed by: Curtis Curran MD 06/24/23 23:[address] 06/24/23 21:34 Exam(s): CT HEAD Without Contrast EXAM: CT Head Without Intravenous Contrast CLINICAL HISTORY: Reason for exam: fall, [place]. TECHNIQUE: Axial computed tomography images of the head/brain without intravenous contrast. CTDI is 37.61 mGy and DLP is 624.41 mGy-cm. Automated exposure control was utilized for the study. A dose lowering technique was utilized adhering to the principles of ALARA. COMPARISON: CT head 09/02/2014. FINDINGS: Brain: Global parenchymal volume loss with chronic microvascular ischemic changes. No hemorrhage. Ventricles: Ventriculomegaly likely related to parenchymal volume loss. Bones/joints: Unremarkable. No acute fracture. Soft tissues: Unremarkable. Vasculature: This indices in the calvarium may represent intraosseous low-flow venous malformations, not significantly changed from prior exam. Sinuses: Unremarkable as visualized. Mastoid air cells: Unremarkable as visualized. No mastoid effusion. IMPRESSION: 1. No intracranial hemorrhage or other acute intracranial abnormality. 2. Global parenchymal volume loss with chronic microvascular ischemic changes. Electronically signed by: Curtis Curran MD 06/24/23 23:56 PM ECG Additional Comments: ECG: Normal sinus rhythm rate of 63. Left axis deviation. Incomplete right bundle branch block. No significant change was found Code Status & VTE Plan VTE Prophylaxis Plan VTE Prophylaxis will be ordered: Yes
[2023-06-25] MEDS ORDERED: CARBOHYDRATES FOR HYPOGLYCEMIA PO PRN (01:44)
[2023-06-25] MEDS ORDERED: GLUCAGON FOR INJ 1 MG VIAL SQ PRN (01:44)
[2023-06-25] MEDS ORDERED: GLUCOSE 10 TAB/TUBE PO PRN (01:44)
[2023-06-25] MEDS ORDERED: NITROGLYCERIN SL 0.4 MG/TAB TAB SL PRN (01:44)
[2023-06-25] MEDS ORDERED: GLUCOSE 40% GEL 15 GM TUBE PO PRN (01:44)
[2023-06-25] MEDS ORDERED: POLYETHYLENE (MIRALAX) 17 GM PACK PO PRN (01:44)
[2023-06-25] MEDS ORDERED: DEXTROSE 50% 50 ML SYRINGE IV PRN (01:44)
[2023-06-25] MEDS: SODIUM CHLORIDE 0.9% 1,000 ML IV SCH ×2 (02:44→10:46)
[2023-06-25] MEDS: INSULIN ASPART PER UNIT CHARGE SC SCH ×5 (02:44→21:40)
--- NOTE | 2023-06-25 07:20 | XRay Report ---
XR chest 1V portable CLINICAL HISTORY: weakness TECHNIQUE: Single frontal radiograph of the chest was obtained. Comparison: Comparison is made to chest radiograph 09/02/2014 FINDINGS: No lines and tubes are seen. Calcified aortic knob is seen. Prominence and cephalization of the vascu lature is seen. Lungs are underinflated without airspace opacities. No evidence of pleural effusion o r pneumothorax. IMPRESSION: Mild pulmonary edema. ACT 112: Negative or not required by law. Electronically signed by: Henrry Tovar M.D. 06/25/2023 7:19 AM
[2023-06-25] MEDS: CYANOCOBALAMIN (B-12) 500 MCG TABLET PO SCH (08:06)
[2023-06-25] MEDS: TIMOLOL MALEATE 0.5% OP SOLN 5 ML BTL OP SCH ×2 (08:06→21:36)
[2023-06-25] MEDS: ESCITALOPRAM OXALATE 10 MG TAB PO SCH (08:06)
[2023-06-25] MEDS: DORZOLAMIDE HCL 2% OPH SOLN 10 ML BTL OPL SCH ×2 (08:09→21:37)
[2023-06-25] MEDS: BRIMONIDINE TARTRATE 0.2% 5ML OPB SCH ×2 (08:10→21:36)
--- NOTE | 2023-06-25 08:22 | Electrocardiogram Report ---
Test Reason : Blood Pressure : / mmHG Vent. Rate : 063 BPM Atrial Rate : 063 BPM P-R Int : 148 ms QRS Dur : 114 ms QT Int : 430 ms P-R-T Axes : 073 -46 080 degrees QTc Int : 440 ms Normal sinus rhythm Left anterior fascicular block Incomplete right bundle branch block Abnormal ECG When compared with ECG of 02-SEP-2014 19:07, No significant change was found Confirmed by Dimitry Starr ([id number]) on 06/25/2023 8:22:06 AM Referred By: REFERRED SELF Confirmed By:Dimitry Starr
[2023-06-25 09:19] LABS: Basophils # (auto) 0.06 K/uL (0.00-0.20); Basophils % (auto) 0.5 %; Eosinophils # (auto) 0.23 K/uL (0.00-0.50); Eosinophils % (auto) 1.8 %; Hematocrit (blood only) 36.3 % (42.0-52.0); Hemoglobin 11.7 g/dl (14.0-18.0); Immature Granulocytes # (auto) 0.07 K/uL (0.01-0.20); Immature Granulocytes % (auto) 0.5 %; Lymphocytes # (auto) 2.73 K/uL (1.20-3.40); Lymphocytes % (auto) 21.1 %; Mean Corpuscular Hgb Conc 32.2 g/dL (32.0-36.0); Mean Corpuscular Volume 90.1 fL (80.0-100.0); Mean Platelet Volume 9.3 fL (9.4-12.4); Monocytes % (auto) 9.3 %; Neutrophils # (auto) 8.62 K/uL (1.40-6.50); Neutrophils % (auto) 66.8 %; Platelet Count 323 K/uL (130-400); RDW Coefficient of Variation 12.7 % (11.5-14.5); RDW Standard Deviation 41.6 fL (36.4-46.3); Red Blood Count 4.03 M/uL (4.70-6.10); White Blood Count 12.91 K/ul (4.8-10.8)
[2023-06-25 09:35] LABS: BUN Creatinine Ratio 16.7 (10-20); Calcium 8.4 mg/dl (8.6-10.3); Creatinine Clr Calc Pharmacy 69.7 ml/min; Est GFR (African American) 93.4 ml/min; Est GFR (Non-African American) 80.6 ml/min; Magnesium 1.9 mg/dl (1.7-2.4); Potassium 3.8 mmol/L (3.5-5.1)
[2023-06-25 09:57] LABS: Estimated Average Glucose 186 mg/dl; Hemoglobin A1C 8.1 % (4.5-5.6)
--- NOTE | 2023-06-25 18:27 | Communication Note ---
Date of Service: June 25, 2023 Post-admission update Mr. Rae is an 87-year-old male with past med significant for type 2 diabetes, dyslipidemia, allergic rhinitis, hypertension, urinary incontinence, stress incontinence, lumbar degenerative disease, sensorineural hearing loss bilateral, glaucoma, history of abnormal gait and risk of falls, depression, who lives in [facility] admitted for mechanical fall and found to have UTI and hypotension. #Mechanical Fall Will need PT/OT, likely 2/2 UTI #Sepsis 2/2 UTI #Leukocytosis -Held BP medication 2/2 hypotension; resolved with fluid resuscitation -IV CTX q 24h -Lactate improved #Hypertension -Resume home fosinopril in am #Glaucoma -Continue eyedrops #DMTII A1C 8.1% acceptable threshold for age; resume SSI Full progress note to follow in AM
[2023-06-25] MEDS: LATANOPROST 0.005% OP SOLN 2.5 ML BTL OPL SCH (21:37)
[2023-06-25] MEDS: cefTRIAXone SODIUM 1,000 MG in DEXTROSE 5 % MINI-B 50 ML IV SCH (22:39)
[2023-06-25] MEDS: ACETAMINOPHEN 325 MG TAB PO PRN (22:44)
[2023-06-26] MEDS: CYANOCOBALAMIN (B-12) 500 MCG TABLET PO SCH (08:43)
[2023-06-26] MEDS: lisinopril 5 MG TAB PO SCH (08:44)
[2023-06-26] MEDS: ESCITALOPRAM OXALATE 10 MG TAB PO SCH (08:44)
[2023-06-26] MEDS: BRIMONIDINE TARTRATE 0.2% 5ML OPB SCH ×2 (08:44→20:02)
[2023-06-26] MEDS: TIMOLOL MALEATE 0.5% OP SOLN 5 ML BTL OP SCH ×2 (08:45→20:03)
[2023-06-26] MEDS: DORZOLAMIDE HCL 2% OPH SOLN 10 ML BTL OPL SCH ×2 (08:45→20:03)
[2023-06-26] MEDS: INSULIN ASPART PER UNIT CHARGE SC SCH ×4 (08:46→20:48)
--- NOTE | 2023-06-26 13:56 | Hospitalist Progress Note ---
Date of Service June 26, 2023 Assessment & Plan (1) Fall: Plan: Mr. Rae is an 87-year-old male with past med significant for type 2 diabetes, dyslipidemia, allergic rhinitis, hypertension, urinary incontinence, stress incontinence, lumbar degenerative disease, sensorineural hearing loss bilateral, glaucoma, history of abnormal gait and risk of falls, depression, who lives in [facility] admitted for mechanical fall and found to have UTI and hypotension. He is being managed for the following: #Acute UTI #No sepsis POA, sirs neg at presentation #Blood lactic acid elevation, s/p ivf, resolved. # Hypotension, likely 2/2 acute illness -Held BP medication 2/2 hypotension; resolved with fluid resuscitation -IV CTX, c/w same -Lactate improved -follow cutlures. UCX - gnb; Bl CX ng24h. #Mechanical Fall CT head and C spine CT reviewed. Orthostatic vitals negative. Will need PT/OT #Hypertension -c/w home fosinopril w/ hold parameters. #Glaucoma -Continue eyedrops #DMTII A1C 8.1% acceptable threshold for age; resume SSI Full code. Dispo: pt/ot, cm to assist. Admission and Anticipated Discharge Date Admission Date: June 25, 2023 Subjective Patient was seen and examined at bedside. Patient was lying in bed, on room air, reports pain at the laceration site on the right side of his head fairly under control. Patient reports eating okay and moving bowels okay, reports feeling weak. Denies chest pain sore throat or cough. Physical Exam Physical Exam: GENERAL: Alert and oriented x3. NAD, on RA. HEENT: No pallor, no icterus. Pupils equal, round and reactive to light. Oral mucosa moist. superficial laceration x approx 1 inch rt parietooccipital region. NECK: No JVD, no neck masses. HEART: S1 and S2 heard. Regular rate and rhythm. No murmur, no gallop. RESPIRATORY SYSTEM: Normal AP diameter. No accessory muscle use. No wheezing, no crackles. ABDOMEN: Soft, bowel sounds present, nontender, no distention. CENTRAL NERVOUS SYSTEM: No facial droop. Speech is clear. Obeys simple commands. Moves extremities. EXTREMITIES: No edema, no erythema seen. Results & Data Results & Data Vital Signs (Past 12 Hours) Vital Signs Temp Pulse Pulse Resp BP BP Pulse Ox 06/26/23 11:44 36.6 C 60 17 121/69 93 06/26/23 08:00 36.8 C 62 18 137/75 93 06/26/23 07:15 67 06/26/23 03:32 36.5 C 59 L 18 111/64 94 O2 Del Method 06/26/23 11:44 Room Air 06/26/23 08:00 Room Air 06/26/23 07:15 06/26/23 03:32 Room Air
[2023-06-26] MEDS: LATANOPROST 0.005% OP SOLN 2.5 ML BTL OPL SCH (20:03)
[2023-06-26] MEDS: cefTRIAXone SODIUM 1,000 MG in DEXTROSE 5 % MINI-B 50 ML IV SCH (23:46)
[2023-06-27 06:32] LABS: Hematocrit (blood only) 39.1 % (42.0-52.0); Hemoglobin 12.9 g/dl (14.0-18.0); Mean Corpuscular Hemoglobin 29.1 pg (25.0-34.0); Mean Corpuscular Volume 88.3 fL (80.0-100.0); Mean Platelet Volume 9.7 fL (9.4-12.4); Platelet Count 383 K/uL (130-400); RDW Coefficient of Variation 12.7 % (11.5-14.5); RDW Standard Deviation 41.1 fL (36.4-46.3); Red Blood Count 4.43 M/uL (4.70-6.10); White Blood Count 13.85 K/ul (4.8-10.8)
[2023-06-27 06:48] LABS: Calcium 8.7 mg/dl (8.6-10.3); Magnesium 1.6 mg/dl (1.7-2.4); Potassium 4.2 mmol/L (3.5-5.1)
[2023-06-27 06:54] LABS: BUN Creatinine Ratio 16.7 (10-20); Creatinine Clr Calc Pharmacy 68.3 ml/min; Est GFR (African American) 93.4 ml/min; Est GFR (Non-African American) 80.6 ml/min
[2023-06-27] MEDS: ESCITALOPRAM OXALATE 10 MG TAB PO SCH (08:10)
[2023-06-27] MEDS: lisinopril 5 MG TAB PO SCH (08:10)
[2023-06-27] MEDS: ACETAMINOPHEN 325 MG TAB PO PRN (08:11)
[2023-06-27] MEDS: DORZOLAMIDE HCL 2% OPH SOLN 10 ML BTL OPL SCH ×2 (08:11→20:47)
[2023-06-27] MEDS: CYANOCOBALAMIN (B-12) 500 MCG TABLET PO SCH (08:11)
[2023-06-27] MEDS: BRIMONIDINE TARTRATE 0.2% 5ML OPB SCH ×2 (08:12→20:47)
[2023-06-27] MEDS: TIMOLOL MALEATE 0.5% OP SOLN 5 ML BTL OP SCH ×2 (08:12→20:47)
[2023-06-27] MEDS: INSULIN ASPART PER UNIT CHARGE SC SCH ×4 (09:27→20:46)
[2023-06-27] MEDS: MAGNESIUM SULFATE / D5W 1 GM/100 ML BAG IV SCH ×2 (09:27→12:00)
--- NOTE | 2023-06-27 15:11 | Hospitalist Progress Note ---
Date of Service June 27, 2023 Assessment & Plan (1) Fall: Plan: Mr. Rae is an 87-year-old male with past med significant for type 2 diabetes, dyslipidemia, allergic rhinitis, hypertension, urinary incontinence, stress incontinence, lumbar degenerative disease, sensorineural hearing loss bilateral, glaucoma, history of abnormal gait and risk of falls, depression, who lives in [facility] admitted for mechanical fall and found to have UTI and hypotension. He is being managed for the following: #Acute UTI #No sepsis POA, sirs neg at presentation #Blood lactic acid elevation, s/p ivf, resolved. # Hypotension, likely 2/2 acute illness -Initially Held BP medication 2/2 hypotension; resolved with fluid resuscitation -IV CTX, c/w same -Lactate improved -Final UCx reviewed; Bl CX ng24h. #Mechanical Fall CT head and C spine CT reviewed. Orthostatic vitals negative. Will need PT/OT and rehab. #Hypertension -c/w home fosinopril w/ hold parameters. #Glaucoma -Continue eyedrops #DMTII A1C 8.1% acceptable threshold for age; resume SSI Full code. Dispo: pt/ot, cm to assist. stable for dc to snf. to med/surg until dc. Admission and Anticipated Discharge Date Admission Date: June 25, 2023 Subjective Patient was seen and examined at bedside. Patient was lying in bed, on room air, reports pain at the laceration site on the right side of his head getting better. Patient reports eating okay and moving bowels okay, reports feeling weak. Denies chest pain sore throat or cough. Reports feeling fatigued and tired but subjectively looks better today. 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 Physical Exam Physical Exam: GENERAL: Alert and oriented x3. NAD, on RA. HEENT: No pallor, no icterus. Pupils equal, round and reactive to light. Oral mucosa moist. superficial laceration x approx 1 inch rt parietooccipital region. NECK: No JVD, no neck masses. HEART: S1 and S2 heard. Regular rate and rhythm. No murmur, no gallop. RESPIRATORY SYSTEM: Normal AP diameter. No accessory muscle use. No wheezing, no crackles. ABDOMEN: Soft, bowel sounds present, nontender, no distention. CENTRAL NERVOUS SYSTEM: No facial droop. Speech is clear. Obeys simple commands. Moves extremities. EXTREMITIES: No edema, no erythema seen. Results & Data Results & Data Vital Signs (Past 12 Hours) Vital Signs Temp Pulse Pulse Resp BP Pulse Ox O2 Del Method 06/27/23 11:23 36.5 C 68 17 102/63 96 Room Air 06/27/23 09:00 72 06/27/23 07:56 36.9 C 73 18 159/84 H 93 Room Air 06/27/23 04:04 58 L
[2023-06-27] MEDS: LATANOPROST 0.005% OP SOLN 2.5 ML BTL OPL SCH (20:47)
[2023-06-27] MEDS: cefTRIAXone SODIUM 1,000 MG in DEXTROSE 5 % MINI-B 50 ML IV SCH (23:03)
[2023-06-28 07:27] LABS: Hematocrit (blood only) 36.3 % (42.0-52.0); Hemoglobin 11.8 g/dl (14.0-18.0); Mean Corpuscular Hemoglobin 28.9 pg (25.0-34.0); Mean Corpuscular Hgb Conc 32.5 g/dL (32.0-36.0); Mean Corpuscular Volume 88.8 fL (80.0-100.0); Mean Platelet Volume 9.5 fL (9.4-12.4); Platelet Count 367 K/uL (130-400); RDW Coefficient of Variation 12.7 % (11.5-14.5); RDW Standard Deviation 41.4 fL (36.4-46.3); Red Blood Count 4.09 M/uL (4.70-6.10); White Blood Count 14.32 K/ul (4.8-10.8)
[2023-06-28 07:53] LABS: BUN Creatinine Ratio 19.2 (10-20); Calcium 8.4 mg/dl (8.6-10.3); Est GFR (Non-African American) 82.8 ml/min; Magnesium 1.7 mg/dl (1.7-2.4); Potassium 4.1 mmol/L (3.5-5.1)
[2023-06-28] MEDS: CYANOCOBALAMIN (B-12) 500 MCG TABLET PO SCH (08:43)
[2023-06-28] MEDS: lisinopril 5 MG TAB PO SCH (08:43)
[2023-06-28] MEDS: ESCITALOPRAM OXALATE 10 MG TAB PO SCH (08:43)
[2023-06-28] MEDS: LATANOPROST 0.005% OP SOLN 2.5 ML BTL OPL SCH (08:44)
[2023-06-28] MEDS: DORZOLAMIDE HCL 2% OPH SOLN 10 ML BTL OPL SCH (08:46)
[2023-06-28] MEDS: BRIMONIDINE TARTRATE 0.2% 5ML OPB SCH (08:46)
[2023-06-28] MEDS: TIMOLOL MALEATE 0.5% OP SOLN 5 ML BTL OP SCH (08:46)
[2023-06-28] MEDS: INSULIN ASPART PER UNIT CHARGE SC SCH ×2 (08:55→12:52)
--- NOTE | 2023-06-28 12:38 | Discharge Summary ---
Date of Service June 28, 2023 Admission HPI Per Admitting Provider 87-year-old male with past med significant for type 2 diabetes, dyslipidemia, allergic rhinitis, hypertension, urinary incontinence, stress incontinence, lumbar degenerative disease, sensorineural hearing loss bilateral, glaucoma, history of abnormal gait and risk of falls, depression, who lives in [facility] was brought in because of fall and found to have UTI and hypotension on presentation. Patient states he was maneuvering his rollator when he slipped and fell backwards and hit his back of his head. No loss of conscious. Patient says he was able to get up. In the ER patient was hypotensive and improved with fluids. Denies any chest pain or shortness of breath. Denies any headache or dizziness. 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 No runny nose or sore throat or cough. No difficulty swallowing. States he is eating and drinking okay. No nausea. No abdominal pain. Normal bowel and bladder movements. Past medical history. As mentioned above. Past surgical history. Biopsy of prostate. Cataract surgery. Colonoscopy. Cystoscopy. EGD. Sinus surgery. TURP. Social history. No smoking. No alcohol. No drug use. Family history. Father had heart disorder. Mother had CAD. Brother had parkinsonism. Admission Exam Per Admitting Provider General- not in distress Head- one inch superficial cut seen on back of the head Eyes- PERRL ENT- oropharynx clear Neck- supple, no JVD, Lungs- clear to auscultation no wheezing or crackles. Heart- regular rhythm; no murmur, no gallop. Abdomen- normal bowel sounds, soft, nontender, no distension. Extremities- no pretibial edema, no erythema seen. Neuro- alert, oriented x 3; PERRL,no facial palsy; no dysarthria; obeys comma nds, moves extremities. Skin- warm & dry Principal Diagnosis Acute UTI Mechanical fall Discharge Exam GENERAL: Alert and oriented x3. NAD, on RA. HEENT: No pallor, no icterus. Pupils equal, round and reactive to light. Oral mucosa moist. superficial laceration x approx 1 inch rt parietooccipital region. NECK: No JVD, no neck masses. HEART: S1 and S2 heard. Regular rate and rhythm. No murmur, no gallop. RESPIRATORY SYSTEM: Normal AP diameter. No accessory muscle use. No wheezing, no crackles. ABDOMEN: Soft, bowel sounds present, nontender, no distention. CENTRAL NERVOUS SYSTEM: No facial droop. Speech is clear. Obeys simple commands. Moves extremities. EXTREMITIES: No edema, no erythema seen. Discharge Data Allergies Allergy/AdvReac Type Severity Reaction Status Date / Time Cipro Allergy Unknown RASH Verified 11/08/16 14:22 ciprofloxacin Allergy Unknown RASH Verified 05/17/20 08:22 Consultations 06/24/23 23:44 ED Decision to Admit Stat Ordered Studies 06/24/23 21:34 CT cervical spine wo con Stat CT head/brain wo con Stat Hospital Course (1) Fall: Mr. Rae is an 87-year-old male with past med significant for type 2 diabetes, dyslipidemia, allergic rhinitis, hypertension, urinary incontinence, stress incontinence, lumbar degenerative disease, sensorineural hearing loss bilateral, glaucoma, history of abnormal gait and risk of falls, depression, who lives in [facility] admitted for mechanical fall and found to have UTI and hypotension. He was managed for the following: #Acute UTI #No sepsis POA, sirs neg at presentation #Blood lactic acid elevation, s/p ivf, resolved. # Hypotension, likely 2/2 acute illness -Initially Held BP medication 2/2 hypotension; resolved with fluid resuscitation -IV CTX, to augmentin on DC -Lactate improved -Final UCx reviewed; Bl CX ng48h. #Mechanical Fall CT head and C spine CT reviewed. Orthostatic vitals negative. Needs PT/OT and rehab. #Hypertension -c/w home fosinopril w/ hold parameters. #Glaucoma -Continue eyedrops #DMTII A1C 8.1% acceptable threshold for age; resume SSI Full code. Dispo: pt/ot, cm to assist. stable for dc to snf. to med/surg until dc. Patient is being discharged to [facility] with following instruction at the point of discharge: Follow-up with your primary care physician within a week time and likely you will need labs CBC/CMP/magnesium/phosphorus. You were admitted with UTI, you will be discharged on antibiotic to complete the course for treatment. Continue with physical therapy, avoid fall. Please make sure that you are able to get your medications today by calling your pharmacy before you leave the hospital so that your treatment continuity is not broken. [facility] Attestation I certify that this patient is under my care and that I, or a physicians executive assistant working with me, had a face to-face encounter that meets the home health [id number] encounter requirements with this patient. The encounter with the patient was in whole, or in part, for the following medical condition, which is the primary reason for home health care (list medical condition): I certify that, based on my findings, the following services are medically necessary home health services: My clinical findings support the need for the above services because: Further, I certify that my clinical findings support that this patient is homebound (i.e. absences from home require considerable and taxing effort and are for medical reasons or adventist services or infrequently or of short duration when for other reasons) because: Certification for Home Health Services: Based on the above findings, I certify that this patient is confined to the home and needs intermittent alf care, physical therapy and/or speech therapy or continues to need occupational therapy. The patient is under my care, and I have initiated the establishment of the plan of care. This patient will be followed by a physician who will periodically review the plan of care. Total Time Total Time Spent Total Time Spent (In Minutes): 45 Discharge Plan Discharge Items Patient Disposition: Transfer Inpatient Rehab Fac Reason For Visit: FALL, UTI, HYPOTENSION Discharge Diagnosis: Acute UTI Mechanical fall Condition on Discharge: Good Activity: As commented below Activity Comment: Continue with physical therapy at rehab. Avoid fall. Non-emergency contact: Primary Care Provider Call non-emergency contact if: you have any medication questions, your symptoms worsen and your temperature is above 101 Follow-up/Referrals: [facility] [Primary Care Provider] - Diet: Carb Consistent or DM2 and Heart Healthy Addtl Attending Provider Instructions: Follow-up with your primary care physician within a week time and likely you will need labs CBC/CMP/magnesium/phosphorus. You were admitted with UTI, you will be discharged on antibiotic to complete the course for treatment. Continue with physical therapy, avoid fall. Please make sure that you are able to get your medications today by calling your pharmacy before you leave the hospital so that your treatment continuity is not broken. Pending Studies at Discharge: Yes Stand-Alone Forms: My [employer] Skilled Items Patient informed of condition?: Yes DNR: No Discharge Level of Care: Acute rehab Communicable Disease: No Discharge Prognosis: Stable Lines: None Urinary Catheter: No Medications and DC Order Prescriptions: New Probiotic 3 billion cell capsule 3,000 mmu cells PO DAILY 14 Days Qty: 14 0RF Rx Instructions: administer with a meal amoxicillin-pot clavulanate 875-125 mg tablet 1 tab PO BID 5 Days Qty: 10 0RF Continued fosinopril 10 mg tablet 5 mg PO DAILY Rx Instructions: HOLD FOR SBP<=90 latanoprost 0.005 % drops 1 drp OPL HS timolol maleate 0.5 % drops 1 drp OPB BID metformin 500 mg tablet extended release 24 hr 1,000 mg PO HS dorzolamide 2 % drops 1 drp OPL BID escitalopram oxalate 10 mg tablet 10 mg PO DAILY brimonidine 0.2 % drops 1 drp OPB BID diphenoxylate-atropine 2.5-0.025 mg Tablet 1 tab PO QAM acetaminophen 325 mg Tablet 650 mg PO Q6 PRN (Reason: Pain) cyanocobalamin (vitamin B-12) [Vitamin B-12] 1,000 mcg Tablet 1,000 mcg PO DAILY Discharge Orders: Discharge Order (Routine); Ordered 06/28/23 Ordered By: Palmer Anglin/Other Patient Handouts: Managing Type 2 Diabetes Admission Data Admit Date/Time: 06/25/23 01:05 Attending Provider: Palmer Estrada Admit Provider: Michael Rae [facility] Other Providers: Michael Rae ; [facility]
== END 2023-06-28 17:23 | DRG 690 ==
LOC: ED 20:34 → EDINP 06-25 01:05 → SUATTDRO 06-25 01:05 → EDINP 06-25 01:44 → 2N 06-25 21:43 → 3W 06-27 23:06

== ENCOUNTER 2023-07-19 10:26 | Inpatient (IN) ==
--- NOTE | 2023-07-19 11:19 | Emergency Department Note ---
Impression & Plan Complicated urinary tract infection, Anemia ED Provider Note NAME: JAYLIN CASTRO AGE: 87 SEX: M : 1935 ARRIVES VIA: Ambulance INFORMANT: [Patient][, ] ED PROVIDER(S): [Angel Montes MD] CHIEF COMPLAINT: Drug-resistant UTI MEDICAL DECISION MAKING: Patient presents from [facility] due to concern of drug-resistant UTI. IV was established and blood was obtained. I did review the patient's urine culture and the patient does have a quinolone allergy after discussing with pharmacy the patient was ordered IV cefepime. Patient's blood work showed a white count of 11 with mild anemia hemoglobin of 12 mild thrombocytosis of 427. Patient's kidney function is unremarkable mild hypomagnesemia at 1.5. Urinalysis does show positive for bacteria and nitrites leukocytes and white cells.I subsequently did speak with the inpatient hospitalist service Kenisha Titus PA-C and the patient was admitted by Dr. Bustamante. Discussion w/ other healthcare providers: [None] Prior /Outside records reviewed: I reviewed the patient's outside urine culture which showed Pseudomonas sensitive to cefepime Differential diagnosis: Infection, dehydration, metabolic abnormality, hypo/hyperglycemia, electrolyte imbalance, anemia, UTI, pneumonia, thyroid dysfunction among others were considered. Diagnostics, as interpreted by me: ECG: [none] Cardiac monitoring: An order was placed for continuous cardiac monitoring. The monitor shows a rate of 82 with sinus rhythm. [Patient was placed on pulse oximetry] Medical decision rules: [none] Imaging studies: None [] HPI: Patient presents due to concern for outpatient drug-resistant UTI. Patient states that he believes that this is the reason he is here but otherwise is unsure why. The patient currently denies any significant symptoms including chest pain shortness of breath nausea vomiting or diarrhea. Patient does report that he has had some occasional burning with urination but no obvious blood in the urine. Patient denies any issues with defecation. Patient does reside at [facility] and reportedly had a drug-resistant UTI and the patient does have a history of a quinolone allergy to where he was referred here for IV antibiotics PAST MEDICAL HISTORY: [See Below] PAST SURGICAL HISTORY: [See Below] SOCIAL HISTORY: [See Below] HOME MEDICATIONS: [See Below] ALLERGIES: [See Below] VITALS: [See Below] PHYSICAL EXAMINATION: GENERAL: NAD, non-toxic. Wearing glasses. EYE EXAM: Normal conjunctiva. PERRL, no anisocoria and EOM's grossly intact w/o pain. OROPHARYNX: Moist mucus membranes, grossly normal dentition. NECK: Supple, no nuchal rigidity, no adenopathy, non-tender. No signs of meningismus. FROM of the neck with good chin to chest and neck extension. No stridor. LUNGS: Clear to auscultation. Normal chest wall mechanics. HEART: NSR, no MRG. ABDOMEN: Abdomen soft, non-tender, no masses, no rebound or guarding. BACK: No CVA TTP. SKIN: No rashes and no bruising. UPPER EXTREMITIES: Upper extremities are grossly normal. LOWER EXTREMITIES: Grossly normal, no edema. NEURO EXAM: A&O x3, cranial nerves II-XII grossly intact, normal speech, moves all 4 extremities. Past Med/Surg History Medical History Glaucoma Chronic anemia Diabetes mellitus, type II Adenocarcinoma of prostate Enlarged prostate with lower urinary tract symptoms (LUTS) Laceration Male stress incontinence Nocturia Prostate cancer Urinary incontinence Urinary symptom or sign Surgical History No pertinent past surgical history Family History Other No pertinent family history in first degree relatives Social History Smoking Status: Never smoker Hx Alcohol Use: No Hx Substance Use: No Preferred Language: Kinyarwanda Communication Ability: Effective Mortar Man Required: Video and No Beliefs That Will Affect Care: None marital status: Current Living Situation: Personal Care Facility Current Living Situation Comment: [facility] [employer] Feels Safe at Home: Yes Safety Concerns: Feels Safe At This Time Assistive Devices: Glasses, Walker and Wheelchair Allergies Allergies Allergy/AdvReac Type Severity Reaction Status Date / Time Cipro Allergy Unknown RASH Verified 11/08/16 14:22 ciprofloxacin Allergy Unknown RASH Verified 05/17/20 08:22 Home Meds Home Medications Medication Instructions Recorded Confirmed fosinopril 10 mg tablet 5 mg PO DAILY 04/01/19 07/19/23 acetaminophen 325 mg tablet 650 mg PO Q6 PRN Pain 06/25/23 07/19/23 brimonidine 0.2 % eye drops 1 drp OPB BID 06/25/23 07/19/23 cyanocobalamin (vitamin B-12) 1,000 mcg PO DAILY 06/25/23 07/19/23 1,000 mcg tablet (Vitamin B-12) diphenoxylate-atropine 2.5 1 tab PO QAM 06/25/23 07/19/23 mg-0.025 mg tablet dorzolamide 2 % eye drops 1 drp OPL BID 06/25/23 07/19/23 escitalopram oxalate 10 mg tablet 10 mg PO DAILY 06/25/23 07/19/23 latanoprost 0.005 % eye drops 1 drp OPL HS 06/25/23 07/19/23 timolol maleate 0.5 % eye drops 1 drp OPB BID 06/25/23 07/19/23 metformin 1,000 mg tablet 1,000 mg PO BID 07/19/23 07/19/23 Results & Data (ED) Vital Signs Vital Signs - 24 hr 07/19/23 10:34 07/19/23 10:34 Temperature 36.4 C L 36.4 C L Temperature Source Oral Oral Pulse Rate 67 Pulse Rate [Right Finger] 65 Pulse Rhythm Regular Pulse Rhythm [Right Finger] Regular Pulse Strength Normal Pulse Strength [Right Finger] Normal Respiratory Rate 20 20 Respiratory Effort / Characteristics Non-Labored Non-Labored Respiratory Depth Normal Normal Respiratory Pattern Regular Regular Blood Pressure 113/72 Blood Pressure [Right Arm] 113/72 Blood Pressure Mean 85 Blood Pressure Mean [Right Arm] 85 Blood Pressure Position Lying Blood Pressure Position [Right Arm] Lying Pulse Oximetry 99 99 Oxygen Delivery Method Room Air Room Air Sepsis Recent Fever Within 48 Hours No Sepsis New/Unexplained Change in Mental Status N/A Sepsis Action Taken by Nursing No Action Required Home Medications Current Medication List: was personally reviewed by me Laboratory Data Attestation: I reviewed the patient's lab results. 07/22/23 06:52 07/22/23 09:25 Lab Results 07/19/23 07/19/23 Range/Units 12:29 12:46 WBC 11.42 H (4.8-10.8) K/ul RBC 4.35 L (4.70-6.10) M/uL Hgb 12.3 L (14.0-18.0) g/dl Hct 38.8 L (42.0-52.0) % MCV 89.2 (80.0-100.0) fL MCH 28.3 (25.0-34.0) pg MCHC 31.7 L (32.0-36.0) g/dL RDW Std Deviation 41.5 (36.4-46.3) fL RDW Coeff of Maya 12.6 (11.5-14.5) % Plt Count 427 H (130-400) K/uL MPV 10.3 (9.4-12.4) fL Immature Gran % (Auto) 0.6 % Neut % (Auto) 59.0 % Lymph % (Auto) 27.1 % Wilkin % (Auto) 9.1 % Eos % (Auto) 3.7 % Baso % (Auto) 0.5 % Neut # (Auto) 6.74 H (1.40-6.50) K/uL Lymph # (Auto) 3.09 (1.20-3.40) K/uL Wilkin # (Auto) 1.04 H (0.11-0.59) K/uL Eos # (Auto) 0.42 (0.00-0.50) K/uL Baso # (Auto) 0.06 (0.00-0.20) K/uL Immature Gran # (Auto) 0.07 (0.01-0.20) K/uL Sodium 134 L (136-145) mmol/L Potassium 4.4 (3.5-5.1) mmol/L Chloride 102 (98-107) mmol/L Carbon Dioxide 25 (21-32) mmol/L Anion Gap 7 (3-11) BUN 17 (6-23) mg/dl Creatinine 0.80 (0.6-1.4) mg/dl Est Cr Clr Drug Dosing 62.7 ml/min Est GFR ( Amer) 92.4 ml/min Est GFR (Non-Af Amer) 79.8 ml/min BUN/Creatinine Ratio 21.3 H (10-20) Glucose 158 H (70-99(Fasting)) mg/dl Calcium 8.7 (8.6-10.3) mg/dl Magnesium 1.5 L (1.7-2.4) mg/dl Total Bilirubin 0.3 (0.2-1.0) mg/dl AST 11 L (13-39) U/L ALT 8 (7-52) U/L Alkaline Phosphatase 87 (34-104) U/L Total Protein 6.8 (6.0-8.3) gm/dl Albumin 2.7 L (3.4-5.0) gm/dl Globulin 4.1 H (2.5-4.0) gm/dl Albumin/Globulin Ratio 0.7 L (0.9-2) TSH 3.529 (0.300-4.500) uIu/ml Urine Color Yellow Urine Appearance Cloudy A (Clear) Urine pH 5.5 (4.5-7.5) Ur Specific [place] 1.015 (1.000-1.030) Urine Protein Trace H (Negative) Urine Glucose (UA) Negative (Negative) Urine Ketones Negative (Negative) Urine Blood 1+ H (Negative) Urine Nitrite Positive A (Negative) Urine Bilirubin Negative (Negative) Urine Urobilinogen Negative (Negative) Ur Leukocyte Esterase 2+ H (Negative) Urine WBC (Auto) >30 H (0-5) /hpf Urine RBC (Auto) 5-10 H (0-4) /hpf U Hyaline Cast (Auto) 1-5 (0-5) /lpf U Epithel Cells (Auto) 0-5 (0-5) /lpf Urine Bacteria (Auto) 1+ H (Negative) Administered Medications Brimonidine Tartrate (Brimonidine Tartrate 0.2% 5ml) 1 drops OPB BID DUY Stop: 08/18/23 20:59 Last Admin: 07/22/23 08:46 Dose: 1 drops Documented By: Admin: 07/21/23 21:47 Dose: 1 drops Documented By: Admin: 07/21/23 09:46 Dose: 1 drops Documented By: Admin: 07/20/23 21:34 Dose: 1 drops Documented By: Admin: 07/20/23 07:24 Dose: 1 drops Documented By: Admin: 07/19/23 21:57 Dose: 1 drops Documented By: RMKenneth Cyanocobalamin (Cyanocobalamin (B-12) 500 Mcg Tablet) 1,000 mcg PO DAILY DUY Stop: 08/19/23 08:59 Last Admin: 07/22/23 08:46 Dose: 1,000 mcg Documented By: Admin: 07/21/23 09:45 Dose: 1,000 mcg Documented By: Admin: 07/20/23 07:25 Dose: 1,000 mcg Documented By: BARAK Diphenhydramine HCl (Diphenhydramine Capsule 25 Mg Cap) 25 mg PO TODAY@0830 DUY Stop: 08/21/23 08:29 Last Admin: 07/22/23 08:46 Dose: 25 mg Documented By: JACQUES Diphenoxylate HCl/Atropine (Diphenoxylate/Atropine 2.5/0.025mg Tab) 1 tab PO QAM DUY Stop: 08/19/23 08:59 Last Admin: 07/22/23 08:47 Dose: 1 tab Documented By: Admin: 07/21/23 09:45 Dose: 1 tab Documented By: Admin: 07/20/23 07:25 Dose: 1 tab Documented By: BARAK Dorzolamide HCl (Dorzolamide Hcl 2% Oph Soln 10 Ml Btl) 1 drops OPL BID DUY Stop: 08/18/23 20:59 Last Admin: 07/22/23 08:45 Dose: 1 drops Documented By: Admin: 07/21/23 21:47 Dose: 1 drops Documented By: Admin: 07/21/23 09:47 Dose: 1 drops Documented By: Admin: 07/20/23 21:43 Dose: 1 drops Documented By: Admin: 07/20/23 07:26 Dose: 1 drops Documented By: Admin: 07/19/23 21:57 Dose: 1 drops Documented By: GRANT Enoxaparin Sodium (Enoxaparin Inj 40 Mg/0.4 Ml Syr) 40 mg SQ Q24H DUY Stop: 08/18/23 17:59 Last Admin: 07/21/23 17:38 Dose: 40 mg Documented By: Admin: 07/20/23 17:03 Dose: 40 mg Documented By: Admin: 07/19/23 21:56 Dose: 40 mg Documented By: GRANT Escitalopram Oxalate (Escitalopram Oxalate 10 Mg Tab) 10 mg PO DAILY DUY Stop: 08/19/23 08:59 Last Admin: 07/22/23 08:46 Dose: 10 mg Documented By: Admin: 07/21/23 09:44 Dose: 10 mg Documented By: Admin: 07/20/23 07:26 Dose: 10 mg Documented By: BARAK Insulin Aspart (Insulin Aspart Per Unit Charge) 0 units SC ACHS DUY Stop: 08/18/23 17:08 Last Admin: 07/22/23 08:13 Dose: Not Given Documented By: Admin: 07/21/23 21:43 Dose: Not Given Documented By: DIANE Co-signed By: KEN Admin: 07/21/23 17:37 Dose: Not Given Documented By: Admin: 07/21/23 12:42 Dose: Not Given Documented By: Admin: 07/21/23 09:57 Dose: 1 units Documented By: ERIC Co-signed By: CAYDEN Admin: 07/20/23 21:48 Dose: 1 units Documented By: CEF Co-signed By: SVETA Admin: 07/20/23 16:51 Dose: Not Given Documented By: Admin: 07/20/23 12:20 Dose: 2 units Documented By: BARAK Co-signed By: TALYA Admin: 07/20/23 08:14 Dose: Not Given Documented By: BARAK Co-signed By: CAYDEN Admin: 07/19/23 21:52 Dose: Not Given Documented By: Admin: 07/19/23 18:39 Dose: Not Given Documented By: MARÍA Latanoprost (Latanoprost 0.005% Op Soln 2.5 Ml Btl) 1 drops OPL HS DUY Stop: 08/18/23 20:59 Last Admin: 07/21/23 21:46 Dose: 1 drops Documented By: Admin: 07/20/23 21:46 Dose: 1 drops Documented By: Admin: 07/19/23 21:57 Dose: 1 drops Documented By: GRANT Levofloxacin (Levofloxacin 500 Mg Tab) 500 mg PO DAILY DUY; Protocol Stop: 07/27/23 08:59 Last Admin: 07/22/23 08:46 Dose: 500 mg Documented By: JACQUES Lisinopril (Lisinopril 5 Mg Tab) 5 mg PO DAILY DUY Stop: 08/19/23 08:59 Last Admin: 07/22/23 08:47 Dose: 5 mg Documented By: Admin: 07/21/23 09:45 Dose: 5 mg Documented By: Admin: 07/20/23 07:26 Dose: 5 mg Documented By: BARAK Timolol Maleate (Timolol Maleate 0.5% Op Soln 5 Ml Btl) 1 drops OP BID DUY Stop: 08/18/23 20:59 Last Admin: 07/22/23 08:47 Dose: 1 drops Documented By: Admin: 07/21/23 21:43 Dose: 1 drops Documented By: Admin: 07/21/23 09:47 Dose: 1 drops Documented By: Admin: 07/20/23 21:39 Dose: 1 drops Documented By: Admin: 07/20/23 07:28 Dose: 1 drops Documented By: Admin: 07/19/23 21:58 Dose: 1 drops Documented By: GRANT Discontinued Medications Diphenhydramine HCl (Diphenhydramine 50 Mg/Ml Vial) 25 mg IV NOW STA Stop: 07/21/23 07:34 Last Admin: 07/21/23 09:42 Dose: 25 mg Documented By: ERIC Sodium Chloride (Nss) 500 mls @ 999 mls/hr IV .Q31M DUY Stop: 07/19/23 12:30 Last Infusion: 07/19/23 12:43 Dose: Infused Documented By: Admin: 07/19/23 12:12 Dose: 999 mls/hr Documented By: CAROLINE Cefepime HCl (Maxipime) 2,000 mg in 20 mls @ 5 mls/min IV NOW STA; Protocol Stop: 07/19/23 11:53 Last Admin: 07/19/23 12:36 Dose: 5 mls/min Documented By: CAROLINE Magnesium Sulfate/Dextrose (Magnesium Sulfate / D5w) 1 gm in 100 mls @ 50 mls/hr IV ONE ONE Stop: 07/19/23 16:25 Last Infusion: 07/19/23 17:26 Dose: Infused Documented By: Admin: 07/19/23 14:50 Dose: 50 mls/hr Documented By: CAROLINE Cefepime HCl 2,000 mg/ Syringe 20 mls @ 5 mls/min IV Q12H DUY; Protocol Stop: 07/30/23 11:59 Last Admin: 07/20/23 23:31 Dose: 5 mls/min Documented By: Admin: 07/20/23 11:29 Dose: 5 mls/min Documented By: BARAK Sodium Chloride (Nss) 1,000 mls @ 80 mls/hr IV .[id number] DUY Stop: 07/20/23 05:38 Last Infusion: 07/20/23 05:39 Dose: Infused Documented By: Admin: 07/19/23 18:38 Dose: 80 mls/hr Documented By: MARÍA Magnesium Sulfate/Dextrose (Magnesium Sulfate / D5w) 1 gm in 100 mls @ 50 mls/hr IV Q2H DUY Stop: 07/20/23 13:59 Last Infusion: 07/20/23 13:34 Dose: Infused Documented By: Admin: 07/20/23 11:50 Dose: 50 mls/hr Documented By: Infusion: 07/20/23 11:50 Dose: Infused Documented By: Admin: 07/20/23 09:55 Dose: 50 mls/hr Documented By: Infusion: 07/20/23 09:54 Dose: Infused Documented By: Admin: 07/20/23 08:12 Dose: 50 mls/hr Documented By: BARAK Levofloxacin (Levofloxacin 250 Mg Tablet) 250 mg PO NOW ONE; Protocol Stop: 07/21/23 07:46 Last Admin: 07/21/23 09:58 Dose: 250 mg Documented By: ERIC Levofloxacin (Levofloxacin 250 Mg Tablet) 250 mg PO ONE ONE Stop: 07/21/23 14:16 Last Admin: 07/21/23 15:13 Dose: 250 mg Documented By: ERIC Discharge Plan Visit Data Chief Complaint: Urinary Symptoms Stated Complaint: REFERRED BY DOCTOR FOR IV ANTIBOTICS ED Provider: Angel Montes Discharge Problem: Complicated urinary tract infection, Anemia Patient Disposition: Admitted As Inpatient Discharge Instructions Interventions: ED Discharge Assessment Last Done: 07/19/23 18:25 Discharge Problem: Anemia Qualifiers: Anemia type: unspecified type Qualified Code(s): D64.9 - Anemia, unspecified
[2023-07-19] MEDS ORDERED: CEFEPIME 2,000 MG/20 ML VIAL IV STA (11:50)
[2023-07-19] MEDS ORDERED: SODIUM CHLORIDE 0.9% 500 ML IV SCH (12:00)
[2023-07-19 12:52] LABS: Basophils # (auto) 0.06 K/uL (0.00-0.20); Basophils % (auto) 0.5 %; Eosinophils # (auto) 0.42 K/uL (0.00-0.50); Eosinophils % (auto) 3.7 %; Hematocrit (blood only) 38.8 % (42.0-52.0); Hemoglobin 12.3 g/dl (14.0-18.0); Immature Granulocytes # (auto) 0.07 K/uL (0.01-0.20); Immature Granulocytes % (auto) 0.6 %; Lymphocytes # (auto) 3.09 K/uL (1.20-3.40); Lymphocytes % (auto) 27.1 %; Mean Corpuscular Hemoglobin 28.3 pg (25.0-34.0); Mean Corpuscular Hgb Conc 31.7 g/dL (32.0-36.0); Mean Corpuscular Volume 89.2 fL (80.0-100.0); Mean Platelet Volume 10.3 fL (9.4-12.4); Monocytes # (auto) 1.04 K/uL (0.11-0.59); Monocytes % (auto) 9.1 %; Neutrophils # (auto) 6.74 K/uL (1.40-6.50); Platelet Count 427 K/uL (130-400); RDW Coefficient of Variation 12.6 % (11.5-14.5); RDW Standard Deviation 41.5 fL (36.4-46.3); Red Blood Count 4.35 M/uL (4.70-6.10); White Blood Count 11.42 K/ul (4.8-10.8)
[2023-07-19 13:08] LABS: Appearance Urine Cloudy (Clear); Bacteria Urine Automated 1+ (Negative); Bilirubin Urine Negative (Negative); Blood Urine 1+ (Negative); Color Urine Yellow; Epithelial Cell Urine Auto 0-5 /lpf (0-5); Glucose Urine UA Negative (Negative); Ketones Urine Negative (Negative); Leukocyte Esterase Urine 2+ (Negative); Nitrite Urine Positive (Negative); Protein Urine Trace (Negative); Specific Gravity Urine 1.015 (1.000-1.030); Urobilinogen Urine Negative (Negative); WBC Urine Automated >30 /hpf (0-5); pH Urine 5.5 (4.5-7.5)
[2023-07-19 13:08] LABS: Albumin Globulin Ratio 0.7 (0.9-2); Albumin Level 2.7 gm/dl (3.4-5.0); BUN Creatinine Ratio 21.3 (10-20); Bilirubin,Total 0.3 mg/dl (0.2-1.0); Calcium 8.7 mg/dl (8.6-10.3); Creatinine Clr Calc Pharmacy 62.7 ml/min; Est GFR (African American) 92.4 ml/min; Est GFR (Non-African American) 79.8 ml/min; Globulin 4.1 gm/dl (2.5-4.0); Magnesium 1.5 mg/dl (1.7-2.4); Potassium 4.4 mmol/L (3.5-5.1); Total Protein 6.8 gm/dl (6.0-8.3)
--- NOTE | 2023-07-19 13:16 | Electrocardiogram Report ---
Test Reason : Blood Pressure : / mmHG Vent. Rate : 061 BPM Atrial Rate : 061 BPM P-R Int : 154 ms QRS Dur : 128 ms QT Int : 410 ms P-R-T Axes : 066 -53 085 degrees QTc Int : 412 ms Normal sinus rhythm Left axis deviation Non-specific intra-ventricular conduction block Abnormal ECG When compared with ECG of 24-JUN-2023 20:48, No significant change was found Confirmed by Shreyas Martinez ([id number]) on 07/19/2023 1:15:42 PM Referred By: REFERRED SELF Confirmed By:Shreyas Martinez
[2023-07-19 13:23] LABS: Thyroid Stimulating Hormone 3.529 uIu/ml (0.300-4.500)
--- NOTE | 2023-07-19 13:53 | History & Physical Report ---
Date of Service July 19, 2023 Assessment & Plan (1) Acute UTI: Plan: Patient is 87 y/o M with PMH HTN, dyslipidemia, DM II, glaucoma, chronic anemia and others listed below presented to ER with c/o UTI and needing IV antibiotics. Unfortunately patient allergic to Cipro and outpatient IV antibiotics were not able be arranged through personal-fpc. 07/13/23 Outpatient urine culture +100,000 colonies/mL pseudomonas aeruginosa that is susceptible cefepime, Cipro, levofloxacin, piperacillin tazobactam, tobramycin In ER afebrile, vitals stable. WBC: 11.4 (was 14 on 06/28/23). UA: +nitrite, 2+leuk est, >30WBC, 5-10 RBC, 1+ urine bacteria Urine culture pending In ER given 500ml NSS, cefepime Continue cefepime CBC, CMP in am (2) Hypomagnesemia: Plan: Magnesium: 1.5 Replace and monitor (3) Weakness: Plan: Generalized weakness since recent hospitalization and rehab stay. Now requiring 2 person assist and wheelchair Fall precautions PT/OT eval Patient and patient's daughters goal is for patient to return to [place] personal-care to be with his . Daughter has already arranged for private STRUCTURAL STEEL PAINTER to assist [place] with patient's needs. Receiving PT at [place] (4) HTN (hypertension): Plan: Stable Continue fosinopril with holding parameters (5) Diabetes mellitus, type II: Plan: A1c: 8.1 on 06/25/23 Hold home metformin Novolog correction sliding scale, may need to increase if BSGs elevated (6) Glaucoma: Plan: Continue home eye drops (7) Chronic anemia: Plan: Hgb: 12. Baseline Hgb: 11-12 Monitor DVT Prophylaxis Lovenox SQ DNR/DNI as per discussion with pt and pt's daughter, CATHERINE VALERIO Follows with Syed Booth PA-C for routine care Pt was seen and care coordinated with Dr Bustamante. See addendum History of Present Illness Chief Complaint: UTI Primary Care Provider: Redd Sommers MD Patient is 87 y/o M with PMH HTN, dyslipidemia, DM II, glaucoma, chronic anemia and others listed below presented to ER with c/o UTI and needing IV antibiotics. History obtained from patient, inpatient and outpatient chart review, as well as patient's daughter, Catherine. History [facility] hospitalization 06/25/2023-06/28/2023 for UTI and mechanical fall. 06/25/2023 urine culture + citrobacter koseri that was pansensitive. Initially treated with IV Rocephin and discharged on Augmentin. He was discharged to acute rehab where he had urinary retention and Muhammad catheter was placed. No longer has catheter and patient reports has been urinating without difficulty. He is back at [place]. Daughter states patient previously complained of dysuria. Currently patient denies any dysuria. 07/13/23 Outpatient urine culture +100,000 colonies/mL pseudomonas aeruginosa that is susceptible cefepime, Cipro, levofloxacin, piperacillin tazobactam, tobramycin. Patient allergic to Cipro with rash as reaction. PCP was attempting for outpatient IV antibiotics. Unfortunately, since he in in personal fpc they would not allow for peripheral IV and IV antibiotics and patient was referred to ER for further evaluation and treatment. Patient has been weak since hospitalization and rehab. Prior to hospitalization patient was walking with walker. At rehab he was not eating and refusing to do PT and just wanted to go back to [place]. Now back at [place] and is requiring 2 person lift and wheelchair. A private STRUCTURAL STEEL PAINTER has been hired by family to assist in his care per patient's daughter. Daughter states patient has been making some progress since being back at [place] and is eating and drinking now and participating in PT. He is still requiring wheelchair. Patient reports formed BM this morning. He states he just has generalized weakness and fatigue. Denies fever/chills, diaphoresis, N/V/D/C, VAZ, dizziness, recurrent fall, CP, SOB, palpitations, cough, rhinorrhea, abdominal pain, back pain, extremity edema, rashes, hematuria. Denies current dysuria. Allergies Allergy/AdvReac Type Severity Reaction Status Date / Time Cipro Allergy Unknown RASH Verified 11/08/16 14:22 ciprofloxacin Allergy Unknown RASH Verified 05/17/20 08:22 Home Medications Medication Instructions Recorded Confirmed Type fosinopril 10 mg tablet 5 mg PO DAILY 04/01/19 07/19/23 History acetaminophen 325 mg tablet 650 mg PO Q6 PRN Pain 06/25/23 07/19/23 History brimonidine 0.2 % eye drops 1 drp OPB BID 06/25/23 07/19/23 History cyanocobalamin (vitamin B-12) 1,000 mcg PO DAILY 06/25/23 07/19/23 History 1,000 mcg tablet (Vitamin B-12) diphenoxylate-atropine 2.5 1 tab PO QAM 06/25/23 07/19/23 History mg-0.025 mg tablet dorzolamide 2 % eye drops 1 drp OPL BID 06/25/23 07/19/23 History escitalopram oxalate 10 mg tablet 10 mg PO DAILY 06/25/23 07/19/23 History latanoprost 0.005 % eye drops 1 drp OPL HS 06/25/23 07/19/23 History timolol maleate 0.5 % eye drops 1 drp OPB BID 06/25/23 07/19/23 History metformin 1,000 mg tablet 1,000 mg PO BID 07/19/23 07/19/23 History Past Med/Surg History Medical History (Updated 07/19/23 @ 15:11 by Shannon Titus PA-C) Glaucoma Chronic anemia Diabetes mellitus, type II Adenocarcinoma of prostate Enlarged prostate with lower urinary tract symptoms (LUTS) Laceration Male stress incontinence Nocturia Prostate cancer Urinary incontinence Urinary symptom or sign Surgical History No pertinent past surgical history Family History Other No pertinent family history in first degree relatives Social History Smoking Status: Never smoker Hx Alcohol Use: No Hx Substance Use: No Preferred Language: Hungarian Communication Ability: Effective Biodiesel Engine Specialist Required: Voice Beliefs That Will Affect Care: None marital status: Current Living Situation: Personal Care Facility Current Living Situation Comment: [place] in [place] Feels Safe at Home: Yes Assistive Devices: Walker and Wheelchair Review of Systems Review of Systems: All systems reviewed & are unremarkable except as noted in HPI & below Physical Exam Physical Exam: General: no acute distress, WDWN elderly male Head: normocephalic, atraumatic Eyes: PERRL, EOM's intact, conjunctiva non-injected, anicteric ENT: normal inspection external ears, nose, mucous membranes slightly dry Neck: supple, trachea midline Lungs: clear, no respiratory distress, no wheezing/rhonchi/rales CV: RRR, no murmur, no pretibial edema Abd: normal BS, soft, non-tender, no CVA tenderness to palpation Ext: no cyanosis, no calf tenderness Neuro: Alert, oriented to person, place, season and year, no focal deficits noted, normal affect Skin: warm, dry Results & Data Results & Data Vital Signs (Past 12 Hours) Vital Signs Temp Pulse Pulse Resp BP BP Pulse Ox 07/19/23 12:44 67 20 95 07/19/23 10:34 36.4 C L 65 20 113/72 99 07/19/23 10:34 36.4 C L 67 20 113/72 99 O2 Del Method 07/19/23 12:44 Room Air 07/19/23 10:34 Room Air 07/19/23 10:34 Room Air Laboratory Results Short CBC 07/19/23 Range/Units 12:29 WBC 11.42 H (4.8-10.8) K/ul Hgb 12.3 L (14.0-18.0) g/dl Hct 38.8 L (42.0-52.0) % Plt Count 427 H (130-400) K/uL BMP 07/19/23 12:29 Sodium 134 L Potassium 4.4 Chloride 102 Carbon Dioxide 25 BUN 17 Creatinine 0.80 Glucose 158 H Calcium 8.7 Liver Function 07/19/23 Range/Units 12:29 Total Bilirubin 0.3 (0.2-1.0) mg/dl AST 11 L (13-39) U/L ALT 8 (7-52) U/L Alkaline Phosphatase 87 (34-104) U/L Albumin 2.7 L (3.4-5.0) gm/dl Urine 07/19/23 Range/Units 12:46 Urine Color Yellow Urine Appearance Cloudy A (Clear) Urine pH 5.5 (4.5-7.5) Ur Specific [place] 1.015 (1.000-1.030) Urine Protein Trace H (Negative) Urine Glucose (UA) Negative (Negative) Supervising Physician Co-Signing Physician Notes I have seen and examined the patient and have discussed the case with the provider above. I agree with the assessment and plan as stated. 87 yo M presents reporting fatigue and weakness x 3 days. He lives at [facility]. Reports eating and drinking without issue. Workup today reveals a possible UTI present, however, he denies any issues with urination, dysuria, flank pain, fevers, chills, or other issues. Denies chest pain or SOB. He is alert and oriented to person, place and time. He is hemodynamically stable and afebrile. He is unable to sit up independently in the bed. General weakness exists without any gross focal deficits. Skin is warm and dry and he is WNWD. CV exam reveals reg rate and rhythm, S1/2 heard and no murmurs. He has no peripheral edema present. Labs/meds reviewed. Patient confirms that he is a DNR/DNI status. No evidence of sepsis is present. Cont cefepime as noted above pending clinical improvement and culture results. DO Robby
[2023-07-19] MEDS ORDERED: MAGNESIUM SULFATE / D5W 1 GM/100 ML BAG IV ONE (14:26)
[2023-07-19] MEDS ORDERED: MAGNESIUM HYDROXIDE SUSP 30 ML UDC PO PRN (17:09)
[2023-07-19] MEDS ORDERED: GLUCOSE 10 TAB/TUBE PO PRN (17:09)
[2023-07-19] MEDS ORDERED: ONDANSETRON INJ 2 MG/ML 2 ML VIAL IV PRN (17:09)
[2023-07-19] MEDS ORDERED: CARBOHYDRATES FOR HYPOGLYCEMIA PO PRN (17:09)
[2023-07-19] MEDS ORDERED: GLUCAGON FOR INJ 1 MG VIAL SQ PRN (17:09)
[2023-07-19] MEDS ORDERED: ACETAMINOPHEN 325 MG TAB PO PRN (17:09)
[2023-07-19] MEDS ORDERED: GLUCOSE 40% GEL 15 GM TUBE PO PRN (17:09)
[2023-07-19] MEDS ORDERED: DEXTROSE 50% 50 ML SYRINGE IV PRN (17:09)
[2023-07-19] MEDS ORDERED: POLYETHYLENE (MIRALAX) 17 GM PACK PO PRN (17:09)
[2023-07-19] MEDS ORDERED: SODIUM CHLORIDE 0.9% 1,000 ML IV SCH (17:09)
[2023-07-19] MEDS: INSULIN ASPART PER UNIT CHARGE SC SCH ×2 (18:39→21:52)
[2023-07-19] MEDS: ENOXAPARIN INJ 40 MG/0.4 ML SYR SQ SCH (21:56)
[2023-07-19] MEDS: LATANOPROST 0.005% OP SOLN 2.5 ML BTL OPL SCH (21:57)
[2023-07-19] MEDS: DORZOLAMIDE HCL 2% OPH SOLN 10 ML BTL OPL SCH (21:57)
[2023-07-19] MEDS: BRIMONIDINE TARTRATE 0.2% 5ML OPB SCH (21:57)
[2023-07-19] MEDS: TIMOLOL MALEATE 0.5% OP SOLN 5 ML BTL OP SCH (21:58)
[2023-07-20] MEDS: BRIMONIDINE TARTRATE 0.2% 5ML OPB SCH ×2 (07:24→21:34)
[2023-07-20] MEDS: CYANOCOBALAMIN (B-12) 500 MCG TABLET PO SCH (07:25)
[2023-07-20] MEDS: DIPHENOXYLATE/ATROPINE 2.5/0.025MG TAB PO SCH (07:25)
[2023-07-20] MEDS: ESCITALOPRAM OXALATE 10 MG TAB PO SCH (07:26)
[2023-07-20] MEDS: DORZOLAMIDE HCL 2% OPH SOLN 10 ML BTL OPL SCH ×2 (07:26→21:43)
[2023-07-20] MEDS: lisinopril 5 MG TAB PO SCH (07:26)
[2023-07-20] MEDS: TIMOLOL MALEATE 0.5% OP SOLN 5 ML BTL OP SCH ×2 (07:28→21:39)
[2023-07-20 07:38] LABS: Basophils # (auto) 0.06 K/uL (0.00-0.20); Basophils % (auto) 0.6 %; Eosinophils # (auto) 0.32 K/uL (0.00-0.50); Eosinophils % (auto) 3.1 %; Hematocrit (blood only) 37.9 % (42.0-52.0); Hemoglobin 11.9 g/dl (14.0-18.0); Immature Granulocytes # (auto) 0.07 K/uL (0.01-0.20); Immature Granulocytes % (auto) 0.7 %; Lymphocytes # (auto) 2.46 K/uL (1.20-3.40); Lymphocytes % (auto) 23.7 %; Mean Corpuscular Hemoglobin 28.5 pg (25.0-34.0); Mean Corpuscular Hgb Conc 31.4 g/dL (32.0-36.0); Mean Corpuscular Volume 90.7 fL (80.0-100.0); Mean Platelet Volume 9.7 fL (9.4-12.4); Monocytes % (auto) 9.6 %; Neutrophils # (auto) 6.47 K/uL (1.40-6.50); Neutrophils % (auto) 62.3 %; Platelet Count 355 K/uL (130-400); RDW Coefficient of Variation 12.6 % (11.5-14.5); RDW Standard Deviation 41.7 fL (36.4-46.3); Red Blood Count 4.18 M/uL (4.70-6.10); White Blood Count 10.38 K/ul (4.8-10.8)
[2023-07-20 07:52] LABS: Albumin Globulin Ratio 0.7 (0.9-2); Albumin Level 2.5 gm/dl (3.4-5.0); BUN Creatinine Ratio 15.4 (10-20); Bilirubin,Total 0.3 mg/dl (0.2-1.0); Calcium 8.5 mg/dl (8.6-10.3); Creatinine Clr Calc Pharmacy 64.4 ml/min; Est GFR (African American) 93.4 ml/min; Est GFR (Non-African American) 80.6 ml/min; Globulin 3.5 gm/dl (2.5-4.0); Magnesium 1.6 mg/dl (1.7-2.4); Potassium 4.2 mmol/L (3.5-5.1)
[2023-07-20] MEDS: MAGNESIUM SULFATE / D5W 1 GM/100 ML BAG IV SCH ×3 (08:12→11:50)
[2023-07-20] MEDS: INSULIN ASPART PER UNIT CHARGE SC SCH ×4 (08:14→21:48)
[2023-07-20] MEDS: CEFEPIME 2,000 MG in SYRINGE 0 ML IV SCH ×2 (11:29→23:31)
--- NOTE | 2023-07-20 14:56 | Hospitalist Progress Note ---
Date of Service July 20, 2023 Assessment & Plan (1) Acute UTI: (2) Hypomagnesemia: (3) Weakness: (4) HTN (hypertension): (5) Diabetes mellitus, type II: (6) Glaucoma: (7) Chronic anemia: Plan Mr. Rae is an 87 y/o M with PMH HTN, dyslipidemia, DM II, glaucoma, chronic anemia and others listed below presented to ER with c/o UTI and needing IV antibiotics. Unfortunately patient allergic to Cipro and outpatient IV antibiotics were not able be arranged through [facility]. #Acute cystitis, Pseudomonas 07/13/23 Outpatient urine culture +100,000 colonies/mL pseudomonas aeruginosa that is susceptible cefepime, Cipro, levofloxacin, piperacillin tazobactam, t obramycin UA with high growth of multiple organisms Repeat Urine Culture In ER given 500ml NSS, cefepime Continue cefepime CBC, CMP in am #Hypomagnesemia -Replace and follow mag level #Generalized Weakness Generalized weakness since recent hospitalization and rehab stay. Now requiring 2 person assist and wheelchair Fall precautions PT/OT eval Patient and patient's daughters goal is for patient to return to [place] personalcare to be with his . Daughter has already arranged for private KOSHER INSPECTOR to assist [place] with patient's needs. Receiving PT at [place] #Hypertension Stable Continue fosinopril with holding parameters #DMTII A1c: 8.1 on 06/25/23 Hold home metformin Novolog correction sliding scale, may need to increase if BSGs elevated #Glaucoma Continue home eye drops #Chronic normocytic anemia Hgb: 12. Baseline Hgb: 11-12 Monitor DVT Prophylaxis Lovenox SQ DNR/DNI as per discussion with pt and pt's daughter, SHER VALERIO Follows with Syed Booth PA-C for routine care Admission and Anticipated Discharge Date Admission Date: July 19, 2023 Subjective NAEO Reports no new symptoms, but generally feeling sad while hospitalized, wishing to get "home" as soon as able Review of Systems Review of Systems: All systems reviewed & are unremarkable except as noted in Subjective Physical Exam Constitutional: WD/WN, vitals as above (generally frail appearing man ) Respiratory: normal respiratory effort, lungs clear to auscultation Cardiovascular: RRR, no murmur, no edema Results & Data Results & Data Vital Signs (Past 12 Hours) Vital Signs Temp Pulse Resp BP Pulse Ox O2 Del Method 07/20/23 11:19 36.5 C 57 L 18 109/63 96 Room Air 07/20/23 08:24 37 C 62 16 128/80 97 Room Air 07/20/23 07:30 36.5 C 61 18 121/66 98 Room Air 07/20/23 07:20 Room Air
[2023-07-20] MEDS: ENOXAPARIN INJ 40 MG/0.4 ML SYR SQ SCH (17:03)
[2023-07-20] MEDS: LATANOPROST 0.005% OP SOLN 2.5 ML BTL OPL SCH (21:46)
[2023-07-21 07:23] LABS: Hematocrit (blood only) 39.6 % (42.0-52.0); Hemoglobin 12.7 g/dl (14.0-18.0); Mean Corpuscular Hemoglobin 28.6 pg (25.0-34.0); Mean Corpuscular Hgb Conc 32.1 g/dL (32.0-36.0); Mean Corpuscular Volume 89.2 fL (80.0-100.0); Mean Platelet Volume 9.4 fL (9.4-12.4); Platelet Count 389 K/uL (130-400); RDW Coefficient of Variation 12.8 % (11.5-14.5); RDW Standard Deviation 41.4 fL (36.4-46.3); Red Blood Count 4.44 M/uL (4.70-6.10); White Blood Count 13.78 K/ul (4.8-10.8)
[2023-07-21] MEDS ORDERED: diphenhydrAMINE 50 MG/ML VIAL IV STA (07:33)
--- NOTE | 2023-07-21 07:38 | Hospitalist Progress Note ---
Date of Service July 21, 2023 Assessment & Plan (1) Acute UTI: (2) Hypomagnesemia: (3) Weakness: (4) HTN (hypertension): (5) Diabetes mellitus, type II: (6) Glaucoma: (7) Chronic anemia: Plan Mr. Rae is an 87 y/o M with PMH HTN, dyslipidemia, DM II, glaucoma, chronic anemia and others listed below presented to ER with c/o UTI and needing IV antibiotics. Unfortunately patient allergic to Cipro and outpatient IV antibiotics were not able be arranged through [facility] [facility]. ASK-A-DOC documentation in OSH EMR from Dr. Frandy Hackett. "Urine culture on 07/13/2023 Culture Growth >100,000 colonies/mL Pseudomonas aeruginosaAbnormalThis bacterial species is known to produce a chromosomal AmpC inducible beta lactamase. Penicillin or cephalosporin use, with the exception of cefepime, may result in resistance. Resulting Agency: SusceptibilityPseudomonas aeruginosaMICROBROTH DILUTIONS Ygjhjpen[id number] Piperacillin TazobactamSusceptibleTobramycinSusceptible Recommendations: Please do the following: If this is the above Urine culture you mention there are two oral options noted there. Cipro and Levo. I recommend you chose those to unnecessary IV antibiotics. I see the allergy but it is just a rash. So, recommend taking anti-histamine and oral antibiotic as this antibiotic will be short course only 5-7 days. Thank you." #Acute cystitis, Pseudomonas 07/13/23 Outpatient urine culture +100,000 colonies/mL pseudomonas aeruginosa that is susceptible cefepime, Cipro, levofloxacin, piperacillin tazobactam, tobramycin UA with high growth of multiple organisms Repeat Urine Culture In ER given 500ml NSS, cefepime Discontinue cefepime, increase in WBC concern for AMPc induced Pseudo based upon above culture data Trial Levofloxacin 250mg now with IV benadryl beforehand. Monitor closely CBC, CMP in am #Hypomagnesemia -Replace and follow mag level #Generalized Weakness Generalized weakness since recent hospitalization and rehab stay. Now requiring 2 person assist and wheelchair Fall precautions PT/OT eval Patient and patient's daughters goal is for patient to return to [place] personal-care to be with his . Daughter has already arranged for private OIL SPECULATOR to assist [place] with patient's needs. Receiving PT at [place] #Hypertension Stable Continue fosinopril with holding parameters #DMTII A1c: 8.1 on 06/25/23 Hold home metformin Novolog correction sliding scale, may need to increase if BSGs elevated #Glaucoma Continue home eye drops #Chronic normocytic anemia Hgb: 12. Baseline Hgb: 11-12 Monitor DVT Prophylaxis Lovenox SQ DNR/DNI as per discussion with pt and pt's daughter, SHER VALERIO Follows with Syed Booth PA-C for routine care Admission and Anticipated Discharge Date Admission Date: July 19, 2023 Subjective NAEO Willing to trial fluoroquinolone with Benadryl to assess response Review of Systems Review of Systems: All systems reviewed & are unremarkable except as noted in Subjective Physical Exam Constitutional: WD/WN, vitals as above (generally frail appearing man ) Respiratory: normal respiratory effort, lungs clear to auscultation Cardiovascular: RRR, no murmur, no edema Results & Data Results & Data Vital Signs (Past 12 Hours) Vital Signs Temp Pulse Resp BP Pulse Ox O2 Del Method 07/21/23 07:24 36.4 C L 76 16 134/74 96 Room Air 07/20/23 22:48 Room Air 07/20/23 20:41 36.7 C 57 L 16 125/69 99 Room Air Laboratory Results Short CBC 07/21/23 Range/Units 06:59 WBC 13.78 H (4.8-10.8) K/ul Hgb 12.7 L (14.0-18.0) g/dl Hct 39.6 L (42.0-52.0) % Plt Count 389 (130-400) K/uL BMP 07/21/23 06:59 Sodium 137 Potassium 4.0 Chloride 106 Carbon Dioxide 26 BUN 13 Creatinine 0.78 Glucose 163 H Calcium 9.1 Medications Administered Home Medications Medication Instructions Recorded Confirmed Last Taken fosinopril 10 mg tablet 5 mg PO DAILY 04/01/19 07/19/23 Unknown acetaminophen 325 mg tablet 650 mg PO Q6 PRN Pain 06/25/23 07/19/23 Unknown brimonidine 0.2 % eye drops 1 drp OPB BID 06/25/23 07/19/23 Unknown cyanocobalamin (vitamin B-12) 1,000 mcg PO DAILY 06/25/23 07/19/23 Unknown 1,000 mcg tablet (Vitamin B-12) diphenoxylate-atropine 2.5 1 tab PO QAM 06/25/23 07/19/23 Unknown mg-0.025 mg tablet dorzolamide 2 % eye drops 1 drp OPL BID 06/25/23 07/19/23 Unknown escitalopram oxalate 10 mg tablet 10 mg PO DAILY 06/25/23 07/19/23 Unknown latanoprost 0.005 % eye drops 1 drp OPL HS 06/25/23 07/19/23 Unknown timolol maleate 0.5 % eye drops 1 drp OPB BID 06/25/23 07/19/23 Unknown metformin 1,000 mg tablet 1,000 mg PO BID 07/19/23 07/19/23 Unknown Active Medications Generic Name Dose Route Start Last Admin Trade Name Freq PRN Reason Stop Dose Admin Brimonidine Tartrate 1 drops 07/19/23 21:00 07/21/23 09:46 Brimonidine Tartrate 0.2% 5ml OPB 08/18/23 20:59 1 drops BID DUY Administration Cyanocobalamin 1,000 mcg 07/20/23 09:00 07/21/23 09:45 Cyanocobalamin (B-12) 500 Mcg Tablet PO 08/19/23 08:59 1,000 mcg DAILY DUY Administration Diphenoxylate HCl/Atropine 1 tab 07/20/23 09:00 07/21/23 09:45 Diphenoxylate/Atropine 2.5/0.025mg Tab PO 08/19/23 08:59 1 tab QAM DUY Administration Dorzolamide HCl 1 drops 07/19/23 21:00 07/21/23 09:47 Dorzolamide Hcl 2% Oph Soln 10 Ml Btl OPL 08/18/23 20:59 1 drops BID DUY Administration Enoxaparin Sodium 40 mg 07/19/23 18:00 07/20/23 17:03 Enoxaparin Inj 40 Mg/0.4 Ml Syr SQ 08/18/23 17:59 40 mg Q24H DUY Administration Escitalopram Oxalate 10 mg 07/20/23 09:00 07/21/23 09:44 Escitalopram Oxalate 10 Mg Tab PO 08/19/23 08:59 10 mg DAILY DUY Administration Insulin Aspart 0 units 07/19/23 17:09 07/21/23 09:57 Insulin Aspart Per Unit Charge SC 08/18/23 17:08 1 units ACHS DUY Administration Latanoprost 1 drops 07/19/23 21:00 07/20/23 21:46 Latanoprost 0.005% Op Soln 2.5 Ml Btl OPL 08/18/23 20:59 1 drops HS DUY Administration Lisinopril 5 mg 07/20/23 09:00 07/21/23 09:45 Lisinopril 5 Mg Tab PO 08/19/23 08:59 5 mg DAILY DUY Administration Timolol Maleate 1 drops 07/19/23 21:00 07/21/23 09:47 Timolol Maleate 0.5% Op Soln 5 Ml Btl OP 08/18/23 20:59 1 drops BID DUY Administration
[2023-07-21 07:41] LABS: BUN Creatinine Ratio 16.7 (10-20); Calcium 9.1 mg/dl (8.6-10.3); Creatinine Clr Calc Pharmacy 64.4 ml/min; Est GFR (African American) 93.4 ml/min; Est GFR (Non-African American) 80.6 ml/min; Magnesium 1.9 mg/dl (1.7-2.4); Phosphorus 3.2 mg/dl (2.5-4.9)
[2023-07-21] MEDS ORDERED: levoFLOXacin 250 MG TABLET PO ONE ×2 (07:45→14:15)
[2023-07-21] MEDS: ESCITALOPRAM OXALATE 10 MG TAB PO SCH (09:44)
[2023-07-21] MEDS: DIPHENOXYLATE/ATROPINE 2.5/0.025MG TAB PO SCH (09:45)
[2023-07-21] MEDS: CYANOCOBALAMIN (B-12) 500 MCG TABLET PO SCH (09:45)
[2023-07-21] MEDS: lisinopril 5 MG TAB PO SCH (09:45)
[2023-07-21] MEDS: BRIMONIDINE TARTRATE 0.2% 5ML OPB SCH ×2 (09:46→21:47)
[2023-07-21] MEDS: DORZOLAMIDE HCL 2% OPH SOLN 10 ML BTL OPL SCH ×2 (09:47→21:47)
[2023-07-21] MEDS: TIMOLOL MALEATE 0.5% OP SOLN 5 ML BTL OP SCH ×2 (09:47→21:43)
[2023-07-21] MEDS: INSULIN ASPART PER UNIT CHARGE SC SCH ×4 (09:57→21:43)
[2023-07-21 17:17] LABS: Appearance Urine Clear (Clear); Bacteria Urine Automated Negative (Negative); Bilirubin Urine Negative (Negative); Blood Urine Negative (Negative); Color Urine Yellow; Glucose Urine UA Negative (Negative); Ketones Urine Negative (Negative); Leukocyte Esterase Urine 3+ (Negative); Nitrite Urine Negative (Negative); Protein Urine Negative (Negative); RBC Urine Automated 0-4 /hpf (0-4); Specific Gravity Urine 1.016 (1.000-1.030); Urobilinogen Urine Negative (Negative); WBC Urine Automated >30 /hpf (0-5); pH Urine 5.5 (4.5-7.5)
[2023-07-21] MEDS: ENOXAPARIN INJ 40 MG/0.4 ML SYR SQ SCH (17:38)
[2023-07-21 18:38] LABS: Basophils # (auto) 0.04 K/uL (0.00-0.20); Basophils % (auto) 0.3 %; Eosinophils # (auto) 0.22 K/uL (0.00-0.50); Eosinophils % (auto) 1.6 %; Hematocrit (blood only) 37.1 % (42.0-52.0); Immature Granulocytes # (auto) 0.08 K/uL (0.01-0.20); Immature Granulocytes % (auto) 0.6 %; Lymphocytes # (auto) 3.23 K/uL (1.20-3.40); Lymphocytes % (auto) 23.4 %; Mean Corpuscular Hemoglobin 28.2 pg (25.0-34.0); Mean Corpuscular Hgb Conc 32.3 g/dL (32.0-36.0); Mean Corpuscular Volume 87.1 fL (80.0-100.0); Mean Platelet Volume 9.7 fL (9.4-12.4); Monocytes # (auto) 1.58 K/uL (0.11-0.59); Monocytes % (auto) 11.4 %; Neutrophils # (auto) 8.65 K/uL (1.40-6.50); Neutrophils % (auto) 62.7 %; Platelet Count 374 K/uL (130-400); RDW Coefficient of Variation 12.8 % (11.5-14.5); RDW Standard Deviation 40.5 fL (36.4-46.3); Red Blood Count 4.26 M/uL (4.70-6.10)
[2023-07-21] MEDS: LATANOPROST 0.005% OP SOLN 2.5 ML BTL OPL SCH (21:46)
[2023-07-22] MEDS ORDERED: levoFLOXacin 250 MG TABLET PO SCH (07:00)
[2023-07-22 07:30] LABS: Hematocrit (blood only) 39.8 % (42.0-52.0); Hemoglobin 12.7 g/dl (14.0-18.0); Mean Corpuscular Hemoglobin 28.6 pg (25.0-34.0); Mean Corpuscular Hgb Conc 31.9 g/dL (32.0-36.0); Mean Corpuscular Volume 89.6 fL (80.0-100.0); Mean Platelet Volume 9.4 fL (9.4-12.4); Platelet Count 362 K/uL (130-400); RDW Coefficient of Variation 12.6 % (11.5-14.5); RDW Standard Deviation 41.5 fL (36.4-46.3); Red Blood Count 4.44 M/uL (4.70-6.10); White Blood Count 15.33 K/ul (4.8-10.8)
[2023-07-22] MEDS: INSULIN ASPART PER UNIT CHARGE SC SCH ×4 (08:13→20:49)
[2023-07-22] MEDS: DORZOLAMIDE HCL 2% OPH SOLN 10 ML BTL OPL SCH ×2 (08:45→20:05)
[2023-07-22] MEDS: levoFLOXacin 500 MG TAB PO SCH (08:46)
[2023-07-22] MEDS: diphenhydrAMINE Capsule 25 MG CAP PO SCH (08:46)
[2023-07-22] MEDS: CYANOCOBALAMIN (B-12) 500 MCG TABLET PO SCH (08:46)
[2023-07-22] MEDS: BRIMONIDINE TARTRATE 0.2% 5ML OPB SCH ×2 (08:46→20:05)
[2023-07-22] MEDS: ESCITALOPRAM OXALATE 10 MG TAB PO SCH (08:46)
[2023-07-22] MEDS: DIPHENOXYLATE/ATROPINE 2.5/0.025MG TAB PO SCH (08:47)
[2023-07-22] MEDS: lisinopril 5 MG TAB PO SCH (08:47)
[2023-07-22] MEDS: TIMOLOL MALEATE 0.5% OP SOLN 5 ML BTL OP SCH ×2 (08:47→20:06)
[2023-07-22 08:56] LABS: Anion Gap 4 (3-11); BUN Creatinine Ratio 12.8 (10-20); Blood Urea Nitrogen 12 mg/dl (6-23); Calcium 8.8 mg/dl (8.6-10.3); Carbon Dioxide 29 mmol/L (21-32); Chloride 101 mmol/L (98-107); Creatinine Clr Calc Pharmacy 53.4 ml/min; Est GFR (African American) 83.6 ml/min; Est GFR (Non-African American) 72.1 ml/min; Glucose 168 mg/dl (70-99(Fasting)); Sodium 134 mmol/L (136-145)
[2023-07-22 13:25] LABS: Hematocrit (blood only) 41.9 % (42.0-52.0); Hemoglobin 13.3 g/dl (14.0-18.0); Mean Corpuscular Hemoglobin 28.4 pg (25.0-34.0); Mean Corpuscular Hgb Conc 31.7 g/dL (32.0-36.0); Mean Corpuscular Volume 89.5 fL (80.0-100.0); Mean Platelet Volume 10.1 fL (9.4-12.4); Platelet Count 314 K/uL (130-400); RDW Coefficient of Variation 12.8 % (11.5-14.5); RDW Standard Deviation 41.4 fL (36.4-46.3); Red Blood Count 4.68 M/uL (4.70-6.10); White Blood Count 17.72 K/ul (4.8-10.8)
--- NOTE | 2023-07-22 14:05 | Hospitalist Progress Note ---
Date of Service July 22, 2023 Assessment & Plan (1) Acute UTI: (2) Hypomagnesemia: (3) Weakness: (4) HTN (hypertension): (5) Diabetes mellitus, type II: (6) Glaucoma: (7) Chronic anemia: Plan Mr. Rae is an 87 y/o M with PMH HTN, dyslipidemia, DM II, glaucoma, chronic anemia and others listed below presented to ER with c/o UTI and needing IV antibiotics. Unfortunately patient allergic to Cipro and outpatient IV antibiotics were not able be arranged through [facility]. ASK-A-DOC documentation in OSH EMR from Dr. Frandy Hackett. "Urine culture on 07/13/2023 Culture Growth >100,000 colonies/mL Pseudomonas aeruginosaAbnormalThis bacterial species is known to produce a chromosomal AmpC inducible beta lactamase. Penicillin or cephalosporin use, with the exception of cefepime, may result in resistance. Resulting Agency: SusceptibilityPseudomonas aeruginosaMICROBROTH DILUTIONSCefepime XqacoeduqojYcmvumbenqivwDueefizjfkg5JvxdtciprudjTjjxvtnpduh6Atltpgkakskr TazobactamSusceptibleTobramycinSusceptible Recommendations: Please do the following: If this is the above Urine culture you mention there are two oral options noted there. Cipro and Levo. I recommend you chose those to unnecessary IV antibiotics. I see the allergy but it is just a rash. So, recommend taking anti-histamine and oral antibiotic as this antibiotic will be short course only 5-7 days. Thank you." Acute cystitis, Pseudomonas 07/13/23 Outpatient urine culture +100,000 colonies/mL pseudomonas aeruginosa that is susceptible cefepime, Cipro, levofloxacin, piperacillin tazobactam, tobramycin UA with high growth of multiple organisms Repeat Urine Culture no growth In ER given 500ml NSS, cefepime Discontinue cefepime, increase in WBC concern for AMPc induced Pseudo based upon above culture data Trial PO Levofloxacin with PO benadryl beforehand. Seems to be tolerating. WBC increasing - 13 K --> 15 K --> 17 K on repeat labs this afternoon. Will continue to monitor for another day, CBC in AM w/ diff. Hypomagnesemia Replace, resolved Generalized Weakness Generalized weakness since recent hospitalization and rehab stay. Now requiring 2 person assist and wheelchair Fall precautions PT/OT eval Patient and patient's daughters goal is for patient to return to [place] personal-care to be with his . Daughter has already arranged for private SENIOR TRAINER to assist [place] with patient's needs. Receiving PT at [place] Hypertension Chronic, stable Home fosinopril replaced with lisinopril while hospitalized DMTII A1c: 8.1 on 06/25/23 Hold home metformin NovoLog per protocol while hospitalized Glaucoma Continue home eye drops Chronic normocytic anemia Hgb 13.3, baseline Hgb: 11-12 Monitor CBC DVT PROPHYLAXIS SQ Lovenox Dispo -due to worsening leukocytosis, will continue to monitor for one more day, expect DC back to [facility] Patient seen in collaboration with Dr. Adler. Admission and Anticipated Discharge Date Admission Date: July 19, 2023 Supervising Physician Co-Signing Physician Notes I have seen and examined the patient and have discussed the case with the provider above. I agree with the assessment and plan as stated. Mr. Rae is an 87 yo M admitted for treatment of UTI. He lives at [facility]. Reports eating and drinking without issue.Currently, he is on Levofloxacin for UTI. He is alert and oriented to person, place and time. No evidence of sepsis is present, however increased WBC unclear eitology as patient appears clinically stable. Repeat CBC with diff in am. If downtrending will discharge. If not will broaden and repeat infectious work up. Rest of plan as above. Subjective Follow-up for UTI. Patient seen and examined. Offers no complaints. Eager to be discharged back to [facility]. Physical Exam Constitutional: + thin; no acute distress Respiratory: normal respiratory effort, lungs clear to auscultation Cardiovascular: Rate/Rhythm: regular rate and regular rhythm Vessels: normal peripheral pulses Extremities: no edema Gastrointestinal (Abdomen): Percussion/Palpation: abdomen soft; abdomen nontender Skin: no rashes, warm and dry Neurologic: no focal motor deficits Psychiatric: Orientation: alert and oriented x 3 Affect: + flat affect Results & Data Results & Data Vital Signs (Past 12 Hours) Vital Signs Temp Pulse Resp BP Pulse Ox O2 Del Method 07/22/23 07:36 36.6 C 66 16 159/79 H 97 Room Air Laboratory Results Short CBC 07/21/23 07/22/23 07/22/23 Range/Units 18:18 06:52 13:06 WBC 13.80 H 15.33 H 17.72 H (4.8-10.8) K/ul Hgb 12.0 L 12.7 L 13.3 L (14.0-18.0) g/dl Hct 37.1 L 39.8 L 41.9 L (42.0-52.0) % Plt Count 374 362 314 (130-400) K/uL BMP 07/22/23 07/22/23 06:52 09:25 Sodium 134 L Potassium TNP 4.3 Chloride 101 Carbon Dioxide 29 BUN 12 Creatinine 0.94 Glucose 168 H Calcium 8.8 Urine 07/21/23 Range/Units 16:50 Urine Color Yellow Urine Appearance Clear (Clear) Urine pH 5.5 (4.5-7.5) Ur Specific [place] 1.016 (1.000-1.030) Urine Protein Negative (Negative) Urine Glucose (UA) Negative (Negative)
[2023-07-22] MEDS: ENOXAPARIN INJ 40 MG/0.4 ML SYR SQ SCH (18:25)
[2023-07-22] MEDS: LATANOPROST 0.005% OP SOLN 2.5 ML BTL OPL SCH (20:05)
[2023-07-23 07:24] LABS: Basophils # (auto) 0.05 K/uL (0.00-0.20); Basophils % (auto) 0.4 %; Eosinophils # (auto) 0.16 K/uL (0.00-0.50); Eosinophils % (auto) 1.2 %; Hemoglobin 12.5 g/dl (14.0-18.0); Immature Granulocytes # (auto) 0.11 K/uL (0.01-0.20); Immature Granulocytes % (auto) 0.8 %; Lymphocytes # (auto) 2.69 K/uL (1.20-3.40); Lymphocytes % (auto) 19.9 %; Mean Corpuscular Hemoglobin 28.1 pg (25.0-34.0); Mean Corpuscular Hgb Conc 32.1 g/dL (32.0-36.0); Mean Corpuscular Volume 87.6 fL (80.0-100.0); Mean Platelet Volume 9.7 fL (9.4-12.4); Monocytes % (auto) 11.8 %; Neutrophils # (auto) 8.93 K/uL (1.40-6.50); Neutrophils % (auto) 65.9 %; Platelet Count 381 K/uL (130-400); RDW Coefficient of Variation 12.9 % (11.5-14.5); RDW Standard Deviation 41.1 fL (36.4-46.3); Red Blood Count 4.45 M/uL (4.70-6.10); White Blood Count 13.54 K/ul (4.8-10.8)
[2023-07-23] MEDS: DIPHENOXYLATE/ATROPINE 2.5/0.025MG TAB PO SCH (07:41)
[2023-07-23] MEDS: CYANOCOBALAMIN (B-12) 500 MCG TABLET PO SCH (07:41)
[2023-07-23] MEDS: diphenhydrAMINE Capsule 25 MG CAP PO SCH (07:41)
[2023-07-23] MEDS: ESCITALOPRAM OXALATE 10 MG TAB PO SCH (07:41)
[2023-07-23] MEDS: DORZOLAMIDE HCL 2% OPH SOLN 10 ML BTL OPL SCH (07:42)
[2023-07-23] MEDS: lisinopril 5 MG TAB PO SCH (07:42)
[2023-07-23] MEDS: TIMOLOL MALEATE 0.5% OP SOLN 5 ML BTL OP SCH (07:43)
[2023-07-23] MEDS: BRIMONIDINE TARTRATE 0.2% 5ML OPB SCH (07:43)
[2023-07-23 07:54] LABS: BUN Creatinine Ratio 14.1 (10-20); Calcium 9.2 mg/dl (8.6-10.3); Creatinine Clr Calc Pharmacy 50.7 ml/min; Est GFR (African American) 78.5 ml/min; Est GFR (Non-African American) 67.7 ml/min; Potassium 4.1 mmol/L (3.5-5.1)
--- OUTSIDE RECORDS SUMMARY | 2023-07-23 08:33 | External Medical Summary ---
Author Name Unknown Address Unknown Organization [id number]:[facility] [address] [place] [address] Laboratory Report Ordering Provider Test Date Status MARY CARMEN KRAUS 07/13/2023 08:56:57 Final Observation Date Value Abnormality Reference (Units ) Status Color of Urine by Auto 07/13/2023 08:56:57 Yellow Light Yellow, Yellow, Dark Yellow Final Clarity, Urine 07/13/2023 08:56:57 Cloudy Abnormal Clear Final Glucose [Mass/volume] in Urine by Automated test strip 07/13/2023 08:56:57 Negative Negative (mg/dL) Final Bilirubin.total [Presence] in Urine by Automated test strip 07/13/2023 08:56:57 Negative Negative Final Ketones [Mass/volume] in Urine by Automated test strip 07/13/2023 08:56:57 Negative Negative (mg/dL) Final Specific gravity, Urine 07/13/2023 08:56:57 1.025 1.003-1.030 Final Hemoglobin [Presence] in Urine by Automated test strip 07/13/2023 08:56:57 Small Abnormal Negative Final pH, Urine 07/13/2023 08:56:57 6.0 5.0-7.5 (Units) Final Protein [Mass/volume] in Urine by Automated test strip 07/13/2023 08:56:57 100 Abnormal Negative (mg/dL) Final Urobilinogen [Mass/volume] in Urine by Automated test strip 07/13/2023 08:56:57 0.2 0.2, 1.0 (mg/dL) Final Nitrite [Presence] in Urine by Automated test strip 07/13/2023 08:56:57 Positive Abnormal Negative Final Leukocyte esterase [Presence] in Urine by Automated test strip 07/13/2023 08:56:57 Large Abnormal Negative Final RBC, Urine 07/13/2023 08:56:57 3-5 Abnormal 0-2 (/HPF) Final WBC, Urine 07/13/2023 08:56:57 50+ Abnormal 0-2 (/HPF) Final Bacteria [#/area] in Urine sediment by Microscopy high power field 07/13/2023 08:56:57 151-200 Abnormal 0-25 (/HPF) Final Performing Location [facility] [address] [facility] [address]
--- OUTSIDE RECORDS SUMMARY | 2023-07-23 08:33 | External Medical Summary | Summary of Care ---
Author Name Unknown Organization [facility] Address [address] [place] [address] Phone [phone] Care Team Providers Care Microchip Specialist Name Role Phone Syed Booth PA-C Primary Care Provider [phone] Reason for Visit * Reason Comments Hospital Follow-Up Encounter Details Date Type Department Care Team (Late st Contact Info) Description 07/18/2023 3:20 PM EST Telemedicine General Internal Medicine [facility] [address] [facility] [place] [address] Syed [facility] [address] Acute cystitis without hematuria* Allergies Active Allergy Reactions Criticality Noted Date Comments Ciprofloxacin 06/12/2004 Rash Pollen 05/25/2004 documented as of this encounter (statuses as of 07/18/2023) Medications Medication Sig Dispensed Refills Start Date End Date Status I-LION PO TABS one daily 0 09/21/2014 Active timolol (TIMOPTIC) 0.5 % ophthalmic solution USE 1 DROP IN BOTH EYES TWICE DAILY 3 08/27/2018 Active saline (OCEAN) 0.65 % nasal spray Administer 1 [place] into nostril as needed for Congestion. 0 Active Combigan 0.2-0.5 % Ophthalmic Solution INSTILL 1 DROP INTO LEFT EYE TWICE A DAY 0 12/02/2020 Active Fosinopril Sodium 10 MG Oral Tablet (Monopril)Indicatio ns:HTN, goal below 130/80 TAKE 1/2 TABLET BY MOUTH EVERY DAY 45 Tablet 1 11/14/2021 Active Latanoprost 0.005 % Ophthalmic Solution (Xalatan) DROP 1 DROP INTO LEFT EYE EVERY DAY AT BEDTIME 0 11/14/2021 Active Brimonidine Tartrate 0.2 % Ophthalmic Solution (Alphagan) PLACE 1 DROP INTO EACH EYE TWICE DAILY 0 02/06/2023 Active Escitalopram Oxalate 10 MG Oral Tablet (Lexapro) 0 02/19/2023 Active Dorzolamide HCl 2 % Ophthalmic Solution (Trusopt Ocumeter Plus) PLACE 1 DROP INTO LEFT EYE TWICE DAILY FOR GLAUCOMA 0 01/19/2023 Active Diphenoxylate-Atrop ine 2.5-0.025 MG Oral Tablet (Lomotil) TAKE 1 TAB AT 0800 & 1400 0 02/01/[address] [facility] Pain Relief Regular [facility] 325 MG Oral Tablet Take 2 Tablets by mouth every 6 hours as needed. 0 02/10/2023 Active B-12 1000 MCG Oral TabletIndications:E ncounter for long-term (current) drug use Take 1,000 mcg by mouth in the morning. 30 Tablet 5 02/22/2023 Active metFORMIN HCl 1000 MG Oral Tablet (Glucophage)Indicat ions:Type 2 diabetes mellitus with hemoglobin A1c goal of less than 8.0% (HCC) TAKE ONE TABLET BY MOUTH 2 TIMES A DAY FOR DM2. 180 Tablet 1 07/10/2023 Active documented as of this encounter (statuses as of 07/18/2023) Active Problems Problem Noted Date Diagnosed Date Reactive depression 02/20/2023 Glaucoma 02/20/2023 Type 2 diabetes mellitus with polyneuropathy Lumbar degenerative disc disease 02/08/2016 HTN, goal below 140/90 11/14/2015 Overview: Per HTN Protocol #27. Abnormality of gait 05/27/2015 At risk for falls 05/27/2015 Stress incontinence, male 01/19/2014 Type 2 diabetes mellitus wit h hemoglobin A1c goal of less than 8.0% 01/02/2012 Overview: ICD-10 update of inactive term PND (post-nasal drip) 09/12/2011 NASAL MUCOSITIS (PERFORATION) 11/10/2010 DYSLIPIDEMIA, GOAL LDL BELOW 100 08/23/2009 Overview: Per Lipid Taxonomy. Urinary incontinence 04/11/2009 Overview: ICD-10 update of inactive term MALIGN NEOPL PROSTATE 11/15/2005 Sensorineural hearing loss, bilateral Allergic rhinitis documented as of this encounter (statuses as of 07/18/2023) Resolved Problems Problem Noted Date Diagnosed Date Resolved Date Peripheral polyneuropathy 11/14/2016 Peripheral neuropathy 12/21/20152016 Gait abnormality 12/21/2015 11/08/2016 Excess ear wax 07/08/2013 09/23/2014 Excessive cerumen in ear canal 09/16/2012 05/18/2013 HTN, GOAL BELOW 140/80 04/28/201212/14 Overview: Per HTN Protocol #27. Chronic rhinitis 04/28/2011 05/08/2011 Acute bronchitis, complicated 04/28/2011 05/08/2011 Cough 04/28/2011 05/08/2011 Impacted cerumen 11/10/2010 12/21/2010 HTN, GOAL BELOW 130/80 10/05/200905/01 Overview: Per HTN Taxonomy. Chronic otitis externa 08/03/200907/24 Impacted cerumen 08/03/2009 11/10/2009 Benign neoplasm of colon 03/19/2007 Overview: adenomatous tissue repeat colonoscopy in 5 years Type 2 diabetes mellitus wit h hemoglobin A1c goal of less than 7.0% 07/18/2005 07/07/2009 Overview: Per Diabetes Taxonomy. ICD-10 update of inactive term ADVANCE DIRECTIVE INFORMATION 02/01/2005 03/13/2017 Overview: Yes, Patient instructed to provide copy of advance directive for provider to review and to be scanned into Electronic Medical Record PURE HYPERCHOLESTEROLEM 09/04/200408/09 Overview: Per Lipid Taxonomy. MIKE HYPERPLAS PROSTAT WO OBSTR(aka BPH) 06/12/2004 06/05/2007 DM, UNCONTROLLED, TYPE II(aka DIABETES) 05/25/2004 06/05/2007 HTN, goal below 140/90 05/25/200410/05 Overview: Per HTN Taxonomy. 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 Chronic pharyngitis 06/11/20 08 Chronic laryngitis 8 Reflux esophagitis 2 Chronic sinusitis 07/24/2018 Nasal mucositis (ulcerative) 11/10/2010 documented as of this encounter (statuses as of 07/18/2023) Immunizations Name Administration Dates Next Due COVID-19 mRNA, LNP-s, No Pre serve, 2-Dose Series ([employer] [place]) 11/18/2020,10/28/2020 H1N1 2009 Influenza, IM 11/10/2009 Pneumococcal Conjugate Vacc, 13 Valent (Prevnar) 05/18/2020,02/08/2016 Pneumococcal Polysaccharide PPV23 (Pneumovax) 06/26/2006 SEASONAL INFLUENZA, PF, 6 M & Above, IM , (FLULAVAL or FLUZONE) 05/23/2018,05/29/2017 Season Influenza, Quad, PF, Adjuvanted, 65+ Yrs, IM (FLUAD) 05/18/2021,05/18/2020 Seasonal Influenza, Quadriva lent, No Preserve, IM 06/16/2019,09/06/2016 Seasonal Influenza, Split, I IV3, With Preserve, Inj 05/27/2015,05/20/2014,05/11/2013,06/10,05/24/2011,05/10/2011,04/23/20 11,06/11/2008,06/26/2006 06/16/2010 TD - Tetanus/Diptheria (ADULT) 01/15/2008 TDAP (age 10 and older)(Boostrix) 04/13/2014 Varicella Zoster Vaccine (Adult) 09/15/2010 Zoster Vaccine Recombinant (Shingrix) 05/18/2020 ,02/29/2020 documented as of this encounter Social History Tobacco Use Types Packs/Day Years Used Date Smoking Tobacco: Never Smokeless Tobacco: Never Alcohol Use Standard Drinks/Week Comments No 0 (1 standard drink = 0.6 oz pur e alcohol) wine seldom PHQ-2 Answer Date Recorded PHQ Adult Total Score 1 02/10/2021 Hunger Vital Sign Answer Date Recorded Within the past 12 months, y ou worried that your food would run out before you got the money to buy more. Never true 02/12/20 23 Within the past 12 months, t he food you bought just didn't last and you didn't have money to get more. Never true 02/11/2023 Sex and Gender Information Value Date Recorded Sex Assigned at Male 01/14/2019 10:13 AM EDT Gender Identity Male 01/14/2019 10:13 AM EDT Sexual Orientation Straight 01/14/2019 10 :13 AM EDT Job Start Date Occupation Industry Not on file Not on file Not on file documented as of this encounter Progress Notes * Syed Booth PA-C - 07/18/2023 3:24 PM EST After connecting to the patient via telephone, the patient was identified by name and date of . Patient was then informed that this was a telephone call only visit. The patient agreed to participate. Visit Disposition: Routine follow-up Total call duration was 23 minutes. Subjective: Marcelino Rae is a 87 year old male. Chief Complaint Patient presents with Hospital Follow-Up HPI: 87 y/o male with hx below seen for hospital discharge via telephone since video did not work at family request. Patient with very poor ambulatory status. On had fall and transported to [facility] where he was admitted for 3 days and treated for UTI (citrobacter) with IV ceftriaxone with transition to Augmentin. Discharged to [facility] where he was still a moderate assist with belt and walker. Persistent white count so urine culture repeated which notes pseudomonas. I have been talking to daughter Catherine who is power of attorney lawyer throughout the day who expresses father does not want to go back to hospital for treatment and would like to arrange outpatient services. Marcelino does confirm this. She has private BIOASSAYIST going in to [place] at this time to help with mobility as he is too high acuityfor them at this time. If things would worsen, he has advanced directive on file and is a DNR at this time. He has fatigue and feels weak. Has burning in tip of penis with urination. No fever or abdominal pain. PMH: Patient Active Problem List Diagnosis Code MALIGN NEOPL PROSTATE C61 Sensorineural hearing loss, bilateral H90.3 Allergic rhinitis J30.9 Urinary incontinence R32 DYSLIPIDEMIA, GOAL LDL BELOW 100 E78.5 NASAL MUCOSITIS (PERFORATION) J34.81 PND (post-nasal drip) R09.82 Type 2 diabetes mellitus with hemoglobin A1c goal of less than 8.0% ([facility]) E11.9 Stress incontinence, male N39.3 Abnormality of gait R26.9 At risk for falls Z91.81 HTN, goal below 140/90 I10 Lumbar degenerative disc disease M51.36 Type 2 diabetes mellitus with polyneuropathy ([facility]) E11.42 Reactive depression F32.9 Glaucoma H40.9 Current Outpatient Medications Medication Sig Dispense Refill I-LION PO TABS one daily timolol (TIMOPTIC) 0.5 % ophthalmic solution USE 1 DROP IN BOTH EYES TWICE DAILY 3 saline (OCEAN) 0.65 % nasal spray Administer 1 [place] into nostril as needed for Congestion. Combigan 0.2-0.5 % Ophthalmic Solution INSTILL 1 DROP INTO LEFT EYE TWICE A DAY Fosinopril Sodium 10 MG Oral Tablet (Monopril) TAKE 1/2 TABLET BY MOUTH EVERY DAY 45 Tablet 1 Latanoprost 0.005 % Ophthalmic Solution (Xalatan) DROP 1 DROP INTO LEFT EYE EVERY DAY AT BEDTIME Brimonidine Tartrate 0.2 % Ophthalmic Solution (Alphagan) PLACE 1 DROP INTO EACH EYE TWICE DAILY Escitalopram Oxalate 10 MG Oral Tablet (Lexapro) Dorzolamide HCl 2 % Ophthalmic Solution (Trusopt Ocumeter Plus) PLACE 1 DROP INTO LEFT EYE TWICE DAILY FOR GLAUCOMA Diphenoxylate-Atropine 2.5-0.025 MG Oral Tablet (Lomotil) TAKE 1 TAB AT 0800 & [address] 325 MG Oral Tablet Take 2 Tablets by mouth every 6 hours as needed. B-12 1000 MCG Oral Tablet Take 1,000 mcg by mouth in the morning. 30 Tablet 5 metFORMIN HCl 1000 MG Oral Tablet (Glucophage) TAKE ONE TABLET BY MOUTH 2 TIMES A DAY FOR DM2. 180 Tablet 1 No current facility-administered medications for this visit. Review of patient's allergies indicates: Allergen Reactions Ciprofloxacin Rash Pollen Objective: There were no vitals taken for this visit. Results for orders placed or performed in visit on 07/13/23 URINALYSIS WITH MICROSCOPIC EXAM Result Value Ref Range Color, Urine Yellow Light Yellow, Yellow, Dark Yellow Clarity, Urine Cloudy (A) Clear Glucose, Urine Negative Negative mg/dL Bilirubin, Urine Negative Negative Ketone, Urine Negative Negative mg/dL Specific [place], Urine 1.025 1.003 - 1.030 Blood, Urine Small (A) Negative pH, Urine 6.0 5.0 - 7.5 Units Protein, Urine 100 (A) Negative mg/dL Urobilinogen, Urine 0.2 0.2, 1.0 mg/dL Nitrite, Urine Positive (A) Negative Esterase, Urine Large (A) Negative RBC, Urine 3-5 (A) 0 - 2 /HPF WBC, Urine 50+ (A) 0 - 2 /HPF Bacteria, Urine 151-200 (A) 0 - 25 /HPF CULTURE, URINE, QUANTITATIVE Specimen: Urine Result Value Ref Range Culture Growth >100,000 colonies/mL Pseudomonas aeruginosa (A) Susceptibility Pseudomonas aeruginosa - MICROBROTH DILUTIONS Cefepime Susceptible Ciprofloxacin* Susceptible * Due to serious side effects, the FDA has advised against using Ciprofloxacin to treat uncomplicated UTIs and respiratory tract infections unless there are no alternative treatment options. Levofloxacin* Susceptible * Due to serious side effects, the FDA has advised against using Levofloxacin to treat uncomplicated UTIs and respiratory tract infections unless there are no alternative treatment options. Piperacillin Tazobactam Susceptible Tobramycin Susceptible CT head and neck negative at ER. WBC 13 from [facility]. ASSESSMENT: Acute cystitis without hematuria (Primary) Secondary to pseudomonas and patient allergic to oral quinolone therapy. Discussed with family that he needs IV treatment. Personal [facility] will not administer. [place] will not allow peripheral IV even if it could be placed and having home health oversee administration. Ultimately, he will need to make decision on going back to the hospital if he would like to have ittreated. If he does not, could progress, become septic and ultimately fatal. Catherine (POA) will discuss further with her father and proceed with his wishes. Follow Up: Return if symptoms worsen or fail to improve. Syed Booth PA-C documented in this encounter Plan of Treatment Upcoming Encounters Date Type Department Care Team (Late st Contact Info) Description 09/16/2023 2:20 PM EST Office Visit General Internal Medicine [facility] [place] [address] [place] [address] Syed Booth PA-C [address] [facility] [place] [address] Health Maintenance Due Date Last Done Comments Hepatitis B (1 of 3 - Risk 3-dose series) 1994 Diabetic Eye Exam 06/06/2021 06/06/2020, , 03/06/2018, Additional history exists Depression Screening 02/10/2022 02/10/2021 Diabetic Foot Exam 09/28/2022 09/28/2021, 1 10/01/2019, 07/31/2019, Additional history exists COVID-19 Vaccine ( season) 2023 11/18/2020, 10/28/2020 Influenza Vaccine (FLU shot) (#1) 2023 05/18/2021, 05/18/2020, 06/16/2019, Additional history exists HbA1c 08/22/2023 02/20/2023, 09/09, 12/30/2020, Additional history exists Albumin/Creatinine Ratio 02/21/2024 023, 09/28/2021, 08/01/2020, Additional history exists DTaP,Tdap,and Td Vaccines (2 - Td or Tdap) 04/13/2024 04/13/2014, 01/15/2008, 01/15/2008 B-12 07/01/2024 07/01/2023, 02/07, 09/27/2021, Additional history exists Pneumococcal Vaccine: 65+ Years Completed 05/18/2020, 02/08/2016, 06/26/2006 Zoster Vaccines Completed 05/18/2020, 02/08, 09/15/2010 GARDASIL-HPV IMMUNIZATION SERIES Aged Out No longer eligible based on patient's age to complete this topic MENINGOCOCCAL (MENACTRA/MENVEO) Aged Out No longer eligible based on patient's age to complete this topic documented as of this encounter Medical Devices Not on filedocumented as of this encounter Visit Diagnoses Diagnosis Acute cystitis without hematuria- Primary Acute cystitis documented in this encounter Advance Directives Documents on File Type Date Recorded Patient Treasury Representative Expl anation POLST 11/30/2021 [facility] FOR LIFE-SUSTAINING TREATMENT Care Teams Microchip Specialist Relationship Specialty Start Date End Date Syed Booth PA-C [address] [facility] [place] [id number] PCP - General Physician Casting Machine Adjuster 11/30/21 documented as of this encounter
--- OUTSIDE RECORDS SUMMARY | 2023-07-23 08:33 | External Medical Summary ---
Author Name Unknown Address Unknown Organization K09:[facility] [place] [address] Laboratory Report Ordering Provider Test Date Status PATY RIOS 07/12/2023 05:35:00 Final Observation Date Value Abnormality Reference (Units ) Status BUN 07/12/2023 05:35:00 17 6-20 (mg/dL) Final Creatinine 07/12/2023 05:35:00 0.9 0.6-1.2 (mg/dL) Final Glomerular filtration rate/1.73 sq M.predicted [Volume Rate/Area] in Serum, Plasma or Blood by Creatinine-based formula (CKD-EPI) 07/12/2023 05:35:00 78 >=60 (mL/min) Final eGFR is calculated based on the CKD-EPI 2020 equation SODIUM 07/12/2023 05:35:00 137 135-146 (m mol/L) Final Potassium 07/12/2023 05:35:00 4.5 3.5-5.1 (m mol/L) Final Cl 07/12/2023 05:35:00 103 98-107 (mm ol/L) Final CO2 07/12/2023 05:35:00 26 22-32 (mmo l/L) Final Anion gap 07/12/2023 05:35:00 8 7-15 (mmol /L) Final Glucose 07/12/2023 05:35:00 111 70-120 (mg /dL) Final Calcium 07/12/2023 05:35:00 9.0 8.4-10.2 ( mg/dL) Final Performing Location [facility] [place] [address] [place] [address]
--- OUTSIDE RECORDS SUMMARY | 2023-07-23 08:33 | External Medical Summary ---
Author Name Unknown Address Unknown Organization K09:[facility] [address] [place] [address] Laboratory Report Ordering Provider Test Date Status PATY RIOS 07/12/2023 05:35:00 Final Observation Date Value Abnormality Reference (Units ) Status WBC, Total 07/12/2023 05:35:00 13.42 Above high normal 4 .00-10.80 (K/uL) Final RBC 07/12/2023 05:35:00 4.24 4.50-5.25 (M/uL) Final Hemoglobin 07/12/2023 05:35:00 12.0 Below low normal 14 .0-16.8 (g/dL) Final HCT 07/12/2023 05:35:00 39.0 Below low normal 40. 0-48.4 (%) Final MCV 07/12/2023 05:35:00 92.0 82.0-99.5 (fL) Final MCH 07/12/2023 05:35:00 28.3 27.0-34.0 (pg) Final MCHC 07/12/2023 05:35:00 30.8 32.0-36.0 (g/dL) Final RDW 07/12/2023 05:35:00 13.3 11.5-15.5 (%) Final Platelets 07/12/2023 05:35:00 398 140-400 (K /uL) Final MPV 07/12/2023 05:35:00 10.8 6.6-11.1 ( fL) Final Performing Location [facility] [address] [place] [address]
--- OUTSIDE RECORDS SUMMARY | 2023-07-23 08:33 | External Medical Summary ---
Author Name Unknown Address Unknown Organization K01:[facility] [place] - [address] [facility] [address] Laboratory Report Ordering Provider Test Date Status MARY CARMEN KRAUS 07/13/2023 08:56:57 Final Observation Date Value Abnormality Reference (Units ) Status Bacteria identified in Specimen by Culture 07/13/2023 08:56:57 [id number]^PSEUDOMON AERUGINOSA Abnormal Final >100,000 colonies/mL Pseudom onas aeruginosa
This bacterial species is known to produce a chromosomal AmpC inducible beta lactamase. Penicillin or cephalosporin use, with the exception of cefepime, may result in resistance. Performing Location [facility] - [address] [facility] [address] Ordering Provider Test Date Status MARY CARMEN KRAUS 07/13/2023 08:56:57 Final Observation Date Value Abnormality Reference (Units ) Status Cefepime susceptibility 07/13/2023 08:56:57 <=1 Susceptible Final Ciprofloxacin 07/13/2023 08:56:57 <=0.25 Susceptible Final Due to serious side effects, the FDA has advised against using Ciprofloxacin to treat uncomplicated UTIs and respiratory tract infections unless there are no alternative treatment options. Levofloxacin susceptibility 07/13/2023 08:56:57 0.5 [place] sceptible Final Due to serious side effects, the FDA has advised against using Levofloxacin to treat uncomplicated UTIs and respiratory tract infections unless there are no alternative treatment options. Piperacillin + Tazobactamsusceptibility 07/13/2023 08:56:57 <=4 Susceptible Final Tobramycinsusceptibility 07/13/2023 08:56:57 <=1 Susce ptible Final Test: Culture, Urine, Quanti tative
Specimen Type: Urine
Specimen Date: 07/13/2023 8:56 AM
Result Date: 07/15/2023 1:52 PM
Result Status: Final result
Abnormal: Yes
Resulting Lab: [facility]
[address]
[facility] [address]

CULTURE

>100,000 colonies/mL Pseudomonas aeruginosa (Abnormal)

This bacterial species is known to produce a chromosomal AmpC inducible
beta lactamase. Penicillin or cephalosporin use, with the exception of
cefepime, may result in resistance.

SUSCEPTIBILITY

Pseudomonas aeruginosa
METHOD MICROBROTH DILUTIONS

CEFEPIME <=1 Susceptible
CIPROFLOXACIN <=0.25 Susceptible [1]
LEVOFLOXACIN 0.5 Susceptible [2]
PIPERACILLIN TAZOBACTAM <=4 Susceptible
TOBRAMYCIN <=1 Susceptible

[1] Due to serious side effects, the FDA has advised against using
Ciprofloxacin to treat uncomplicated UTIs and respiratory tract infections
unless there are no alternative treatment options.

[2] Due to serious side effects, the FDA has advised against using
Levofloxacin to treat uncomplicated UTIs and respiratory tract infections
unless there are no alternative treatment options.

null Performing Location [facility] - [address] [facility] [address]
--- OUTSIDE RECORDS SUMMARY | 2023-07-23 08:33 | External Medical Summary | Summary of Care ---
Author Name Unknown Organization [facility] Address [address] [facility] [address] Phone [phone] Care Team Providers Care Client Support Associate Name Role Phone Syed Booth PA-C Primary Care Provider +1- [phone] Reason for Visit * Reason Onset Date Comments Test Results 07/10/2023 Scheduling 07/10/2023 Hospital Follow-Up 07/10/2023 Encounter Details Date Type Department Care Team (Late st Contact Info) Description 07/10/2023 Telephone General Internal Medicine [facility] [place] 200 [facility] [place] [address] Syed Booth PA-C [facility] [address] Test Results; Scheduling; Hospital Follow-Up Allergies Active Allergy Reactions Criticality Noted Date [...] (OCEAN) 0.65 % nasal spray Administer 1 [place] into nostril as needed for Congestion. 0 [...] mRNA, LNP-s, No Pre serve, 2-Dose Series (Pfizer) 11/18/2020,10/28/2020 H1N1 2009 Influenza, IM 11/10/2009 Pneumococcal [...] on file documented as of this encounter Miscellaneous Notes * Telephone Encounter - John Oropeza OSA - 07/11/2023 3:37 PM EDT Called pt's daughter Catherine, pt is still in rehab, she will call to schedule hosp f/u when he's released 07/11 JAT * Telephone Encounter - Syed Booth PA-C - 07/11/2023 7:35 AM EDT Should have been scheduled for hospital discharge. Does not look like any hospital follow up call was placed. * Telephone Encounter - Clayton Banks LPN - 07/10/2023 4:16 PM EDT Pt fell 2 weeks ago and hit his head at the facility he resides at. Pt went to the ED where they found a UTI. Pt's daughter(POConnie) stated he was admitted at [facility] from 06/23-. She also stated that he is still being treated for this uti. Contacted [facility] and awaiting a fax for his D/c summary. * Telephone Encounter - Clayton Banks LPN - 07/10/2023 4:14 PM EDT ----- Message from Syed Booth PA-C sent at 07/02/2023 9:17 AM EDT ----- Patient with stable anemia, but elevation of white blood cell count. Any current infection symptoms? documented in this encounter Plan of Treatment Upcoming Encounters Date Type Department Care Team (Late st Contact Info) Description 07/18/2023 3:20 PM EST Telemedicine General Internal Medicine [facility] 200 [facility] [place] [address] Syed Booth PA-C 200 [facility] [place] [address] 09/16/2023 2:20 PM EST Office Visit General Internal Medicine [facility] 200 [facility] [place] [address] Syed Booth PA-C 200 [facility] [place] [address] Health Maintenance Due Date Last Done Comments [...] Not on filedocumented as of this encounter Advance Directives Documents on File Type Date Recorded Patient Director Of Religious Activities Expl anation POL 11/30/[address] [place] [address] [facility] FOR LIFE-SUSTAINING TREATMENT Care Teams Client Support Associate Relationship Specialty Start Date End Date Syed Booth PA-C [address] [place] [address] [place] [address] PCP - General Physician Project Designer 11/30/21 documented as of this encounter
--- OUTSIDE RECORDS SUMMARY | 2023-07-23 08:33 | External Medical Summary | Summary of Care ---
Author Name Unknown Organization [facility] Address [address] [facility] [address] Phone [phone] Care Team Providers Care Operations Director Name Role Phone Syed Booth PA-C Primary Care Provider +1- [phone] Reason for Visit * Reason Onset Date Comments Test Results 07/10/2023 Scheduling 07/10/2023 Hospital Follow-Up 07/10/2023 Encounter Details Date Type Department Care Team (Late st Contact Info) Description 07/10/2023 Telephone General Internal Medicine [facility] [place] 200 [facility] [place] [address] Syed Booth PA-C 200 [facility] [address] Test Results; Scheduling; Hospital Follow-Up Allergies Active Allergy Reactions Criticality Noted Date Comments Ciprofloxacin 06/12/2004 Rash Pollen 05/25/2004 documented as of this encounter (statuses as of 07/11/2023) Medications Medication Sig Dispensed Refills Start Date End Date Status I-LION PO TABS one daily 0 09/21/2014 Active timolol (TIMOPTIC) 0.5 % ophthalmic solution USE 1 DROP IN BOTH EYES TWICE DAILY 3 08/27/2018 Active saline (OCEAN) 0.65 % nasal spray Administer 1 [place] into nostril as needed for Congestion. 0 [...] as of this encounter (statuses as of 07/11/2023) Active Problems Problem Noted Date Diagnosed Date [...] as of this encounter (statuses as of 07/11/2023) Resolved Problems Problem Noted Date Diagnosed Date [...] as of this encounter (statuses as of 07/11/2023) Immunizations Name Administration Dates Next Due COVID-19 mRNA, LNP-s, No Pre serve, 2-Dose Series ([employer]) 11/18/2020,10/28/2020 H1N1 2009 Influenza, IM 11/10/2009 Pneumococcal [...] Pt's daughter(POConnie) stated he was admitted at [facility] from 06/23-. She also stated that he is still being treated for this uti. Contacted [facility] and awaiting a fax for his D/c [...] PM EST Office Visit General Internal Medicine [facility] 200 [facility] [place] [address] Syed Booth PA-C 200 [facility] [place] [address] Health Maintenance Due Date Last Done Comments [...] Documents on File Type Date Recorded Patient Mud Jack Nozzleman Expl anation HELADIO 11/30/2021 [facility] FOR LIFE-SUSTAINING TREATMENT Care Teams Operations Director Relationship Specialty Start Date End Date Syed Booth PA-C [address] [place], [place] [address] PCP - General Physician University Archivist 11/30/21 documented as of this encounter
--- OUTSIDE RECORDS SUMMARY | 2023-07-23 08:34 | External Medical Summary ---
Author Name Unknown Address Unknown Organization [facility] [address] [place] [id number] Laboratory Report Ordering Provider Test Date Status HY,DEPAMPHILIS 07/07/2023 05:15:00 Final Observation Date Value Abnormality Reference (Units ) Status Nucleated erythrocytes/100 leukocytes [Ratio] in Blood by Automated count 07/07/2023 05:15:00 Final Variant lymphocytes [Presence] in Blood by Light microscopy 07/07/2023 05:15:00 Present Abnormal None Seen Final Performing Location [facility] [address] [place] [id number]
--- OUTSIDE RECORDS SUMMARY | 2023-07-23 08:34 | External Medical Summary | Summary of Care ---
Author Name Unknown Organization [facility] Address [address] [place] [address] Phone [phone] Care Team Providers Care Training Manager Name Role Phone Syed Booth PA-C Primary Care Provider +1- [phone] Reason for Visit * Reason Onset Date Comments Test Results 07/10/2023 Scheduling 07/10/2023 Encounter Details Date Type Department Care Team (Late st Contact Info) Description 07/10/2023 Telephone General Internal Medicine [facility] [address] [place] [address] Syed Booth PA-C [facility] [address] Test Results; Scheduling Allergies Active Allergy Reactions Criticality Noted Date [...] (OCEAN) 0.65 % nasal spray Administer 1 [place] into nostril as needed for Congestion. 0 [...] mRNA, LNP-s, No Pre serve, 2-Dose Series ([employer]) 11/18/2020,10/28/2020 H1N1 2009 Influenza, IM 11/10/2009 Pneumococcal Conjugate Vacc, 13 Valent (Prevnar) 05/18/2020,02/08/2016 Pneumococcal Polysaccharide PPV23 (Pneumovax) 06/26/2006 SEASONAL INFLUENZA, PF, 6 M & Above, IM , (FLULAVAL or FLUZONE) 05/23/2018,05/29/2017 Season Influenza, Quad, PF, Adjuvanted, 65+ Yrs, IM (FLUAD) 05/18/2021,05/18/2020 Seasonal Influenza, Quadriva lent, No Preserve, IM 06/16/2019,09/06/2016 Seasonal Influenza, Split, I IV3, With Preserve, Inj 05/27/2015,05/20/2014,05/11/2013,06/10,05/24/2011,05/10/2011,04/23/20,06/11/2008,06/26/2006 06/16/2010 TD - Tetanus/Diptheria (ADULT) 01/15/2008 TDAP [...] encounter Miscellaneous Notes * Telephone Encounter - Syed Booth PA-C [...] ED where they found a UTI. Pt's daughter(POA) stated he was admitted at [facility] from 06/23-. She also stated that he is still being treated for this uti. Contacted [facility] and awaiting a fax for his D/c [...] PM EST Office Visit General Internal Medicine [facility] [place] 200 [facility] [place] [address] Syed Booth PA-C 200 [facility] [place] [address] Health Maintenance Due Date Last Done Comments [...] 09/09, 12/30/2020, Additional history exists Albumin/Creatinine Ratio 02/21/202402/20/2 023, 09/28/2021, 08/01/2020, Additional history exists DTaP,Tdap,and [...] Documents on File Type Date Recorded Patient Rivet Catcher Expl anation POLST 11/30/2021 [facility] FOR LIFE-SUSTAINING TREATMENT Care Teams Training Manager Relationship Specialty Start Date End Date Syed Booth PA-C [facility] [address] [place] [address] PCP - General Physician Perishable Fruit Inspector 11/30/21 documented as of this encounter
--- OUTSIDE RECORDS SUMMARY | 2023-07-23 08:34 | External Medical Summary ---
Author Name Unknown Address Unknown Organization [facility] [address] [place] [id number] Laboratory Report Ordering Provider Test Date Status HY,DEPAMPHILIS 07/07/2023 05:15:00 Final Observation Date Value Abnormality Reference (Units ) Status SYNC LEUKOCYTES IN BLOOD BY AUTOMATED COUNT 07/07/2023 05:15:00 11.61 Above high normal 4.00-10.80 (K/uL) Final Segs 07/07/2023 05:15:00 51.0 40.0-75.0 (%) Final Lymphs % 07/07/2023 05:15:00 35.2 18.0-42.0 (%) Final Monos 07/07/2023 05:15:00 9.7 1.0-11.0 (%) Final Eosinophils 07/07/2023 05:15:00 3.9 0.0-6.0 (%) Final Basos 07/07/2023 05:15:00 0.2 0.0-2.0 (%) Final Absolute Segs 07/07/2023 05:15:00 5.92 1.80-7.70 (K/uL) Final Lymphs, absolute 07/07/2023 05:15:00 4.09 1.00-4.80 (K/ul) Final Monos, Abs 07/07/2023 05:15:00 1.13 Above high normal 0.00-1.10 (K/uL) Final Eos, Abs 07/07/2023 05:15:00 0.45 0.00-0.70 (K/uL) Final Basos, Abs 07/07/2023 05:15:00 0.02 0.00-0.20 (K/uL) Final Performing Location [facility] [address] [place] [address]
--- OUTSIDE RECORDS SUMMARY | 2023-07-23 08:34 | External Medical Summary | Summary of Care ---
Author Name Unknown Organization [facility] Address [address] [place] [address] Phone [phone] Care Team Providers Care Peanut Blancher Name Role Phone Syed Booth PA-C Primary Care Provider +1- [phone] Reason for Visit * Reason Onset Date Comments Test Results 07/10/2023 Encounter Details Date Type Department Care Team (Late st Contact Info) Description 07/10/2023 Telephone General Internal Medicine [facility] [address] [place] [address] Syed Booth PA-C [address] [facility] [address] Test Results Allergies Active Allergy Reactions Criticality Noted Date Comments Ciprofloxacin 06/12/2004 Rash Pollen 05/25/2004 documented as of this encounter (statuses as of 07/10/2023) Medications Medication Sig Dispensed Refills Start Date End Date Status I-LION PO TABS one daily 0 09/21/2014 Active timolol (TIMOPTIC) 0.5 % ophthalmic solution USE 1 DROP IN BOTH EYES TWICE DAILY 3 08/27/2018 Active saline (OCEAN) 0.65 % nasal spray Administer 1 [place] into nostril as needed for Congestion. 0 [...] as of this encounter (statuses as of 07/10/2023) Active Problems Problem Noted Date Diagnosed Date [...] as of this encounter (statuses as of 07/10/2023) Resolved Problems Problem Noted Date Diagnosed Date [...] as of this encounter (statuses as of 07/10/2023) Immunizations Name Administration Dates Next Due COVID-19 mRNA, LNP-s, No Pre serve, 2-Dose Series ([employer]) 11/18/2020,10/28/2020 H1N1 2009 Influenza, IM 11/10/2009 Pneumococcal [...] encounter Miscellaneous Notes * Telephone Encounter - Clayton Banks LPN - 07/10/2023 4:16 PM EDT Pt fell 2 weeks ago and hit his head at the facility he resides at. Pt went to the ED where they found a UTI. Pt's daughter(POConnie) stated he was admitted at [facility] from 06/23-. She also stated that he is still being treated for this uti. Contacted [facility] and awaiting a fax for his D/c [...] Medicine [place] [address] [place] [address] Syed Booth PA-C [address] [facility] [place] [address] Health Maintenance Due Date Last Done Comments [...] Documents on File Type Date Recorded Patient Acquisition Marketing Manager Expl anation POL 11/30/2021 [place] OR [facility] FOR LIFE-SUSTAINING TREATMENT Care Teams Peanut Blancher Relationship Specialty Start Date End Date Syed Booth PA-C [address] [place] [address] [place] [address] PCP - General Physician High School Professional 11/30/21 documented as of this encounter
--- OUTSIDE RECORDS SUMMARY | 2023-07-23 08:34 | External Medical Summary ---
Author Name Unknown Address Unknown Organization [facility] [address] [place] [address] Laboratory Report Ordering Provider Test Date Status HY,DEPAMPHILIS 07/07/2023 05:15:00 Final Observation Date Value Abnormality Reference (Units ) Status BUN 07/07/2023 05:15:00 24 Above high normal 6-20 (mg/dL) Final Creatinine 07/07/2023 05:15:00 1.0 0.6-1.2 (mg/dL) Final Glomerular filtration rate/1.73 sq M.predicted [Volume Rate/Area] in Serum, Plasma or Blood by Creatinine-based formula (CKD-EPI) 07/07/2023 05:15:00 75 >=60 (mL/min) Final eGFR is calculated based on the CKD-EPI 2020 equation SODIUM 07/07/2023 05:15:00 138 135-146 (m mol/L) Final Potassium 07/07/2023 05:15:00 5.0 3.5-5.1 (m mol/L) Final Cl 07/07/2023 05:15:00 102 98-107 (mm ol/L) Final CO2 07/07/2023 05:15:00 25 22-32 (mmo l/L) Final Anion gap 07/07/2023 05:15:00 11 7-15 (mmol /L) Final Glucose 07/07/2023 05:15:00 137 Above high normal 70 -120 (mg/dL) Final Calcium 07/07/2023 05:15:00 9.0 8.4-10.2 ( mg/dL) Final Performing Location [facility] [address] [place] [address]
--- OUTSIDE RECORDS SUMMARY | 2023-07-23 08:34 | External Medical Summary | Summary of Care ---
Author Name Unknown Organization [facility] Address [address] [place] [address] Phone [phone] Care Team Providers Care Quarantine Officer Name Role Phone Syed Cleaning PA-C Primary Care Provider +1- [phone] Reason for Visit * Reason Onset Date Comments Medication Refill 07/09/2023 Encounter Details Date Type Department Care Team (Late st Contact Info) Description 07/09/2023 Refill General Internal Medicine [facility] 200 [place] [address] Syed Cleaning PA-C [facility] [address] Type 2 diabetes mellitus with hemoglobin A1c goal of less than 8.0% ([facility]) Allergies Active Allergy Reactions Criticality Noted Date [...] (OCEAN) 0.65 % nasal spray Administer 1 [place] into nostril as needed for Congestion. 0 Active Combigan 0.2-0.5 % Ophthalmic Solution INSTILL 1 DROP INTO LEFT EYE TWICE A DAY 0 12/02/2020 Active Fosinopril Sodium 10 MG Oral Tablet (Monopril)Indica tions:HTN, goal below 130/80 TAKE 1/2 TABLET BY [...] TWICE DAILY FOR GLAUCOMA 0 01/19/2023 Active Diphenoxylate-At ropine 2.5-0.025 MG Oral Tablet (Lomotil) TAKE 1 TAB AT 0800 & 1400 0 02/01/[address] [facility] [address] 325 MG Oral Tablet Take 2 Tablets by mouth every 6 hours as needed. 0 02/10/2023 Active B-12 1000 MCG Oral TabletIndication s:Encounter for long-term (current) drug use Take 1,000 mcg by mouth in the morning. 30 Tablet 5 02/22/2023 Active metFORMIN HCl 1000 MG Oral Tablet (Glucophage)Suellen cations:Type 2 diabetes mellitus with hemoglobin A1c goal of less than 8.0% (HCC) TAKE ONE TABLET BY MOUTH 2 TIMES A DAY FOR DM2. 180 Tablet 1 07/10/2023 Active metFORMIN HCl 1000 MG Oral Tablet (Glucophage)Suellen cations:Type 2 diabetes mellitus with hemoglobin A1c goal of less than 8.0% (HCC) TAKE ONE TABLET BY MOUTH 2 TIMES A DAY FOR DM2. 180 Tablet 1 08/23/2022 07/09/2023 Discontinue d(Refill) documented as of this encounter (statuses as [...] mRNA, LNP-s, No Pre serve, 2-Dose Series ([employer]) 11/18/2020,10/28/2020 H1N1 2009 Influenza, IM 11/10/2009 Pneumococcal [...] Miscellaneous Notes * Telephone Encounter - Syed Cleaning PA-C - 07/10/2023 8:34 AM EDTSigned Prescriptions: Disp Refills metFORMIN HCl 1000 MG Oral Tablet (Glucoph*180 Ta*1 Sig: TAKE ONE TABLET BY MOUTH 2 TIMES A DAY FOR DM2. Authorizing Provider: SYED CLEANING * Telephone Encounter - Angelika Contreras LPN - 07/10/2023 8:27 AM EDTPending Prescriptions: Disp Refills metFORMIN HCl 1000 MG Oral Tablet (Glucoph*180 Ta*1 * Telephone Encounter - Franchesca Díaz Olamide - 07/09/2023 6:48 AM EDT Did you pend patient's preferred pharmacy and medication before forwarding?yes Pharmacy: [id number] [id number] [address] Pending Prescriptions: Disp Refills metFORMIN HCl 1000 MG Oral Tablet (Glucop*180 Ta*1 Last Visit: 02/20/2023 (in office), Visit date not found (telemedicine) Next Visit: 09/16/2023 If no future appointments scheduled, and last appointment is greater than a year ago, please schedule patient for a follow-up appointment Last date the medication was ordered: 08/23/22 Is this request for a controlled substance?No Urine Drug Screen:No results found for this or any previous visit. Patient Phone Numbers Labs: Lab Results Component Value Date/Time CREAT 1.0 07/07/2023 05:15 AM CREAT 02/25/2023 12:00 AM Comment: CBC, B 12 CREAT 0.8 08/01/2020 09:04 AM POTASSIUM 5.0 07/07/2023 05:15 AM POTASSIUM 4.6 08/01/2020 09:04 AM TSH 4.15 02/20/2023 12:47 PM TSH 4.05 11/08/2016 08:28 AM LDLCALC 71 09/27/2021 09:52 AM LDLCALC 65 08/01/2020 09:04 AM LDLDIRECT NOT APPLICABLE 08/01/2020 09:04 AM LDLDIRECT 178 (H) 02/08/2016 09:14 AM ALT 13 02/20/2023 12:47 PM ALT 19 08/01/2020 09:04 AM HGBA1C 7.8 (H) 02/20/2023 12:47 PM HGBA1C 7.5 (H) 12/30/2020 08:20 AM HGBA1C 7.7 (H) 08/01/2020 09:04 AM documented in this encounter Plan of Treatment Upcoming Encounters Date Type Department Care Team (Late st Contact Info) Description 09/16/2023 2:20 PM EST Office Visit General Internal Medicine [address] [place] [facility] [address] Syed Cleaning PA-C [facility] [place] [address] Health Maintenance Due Date Last Done Comments [...] as of this encounter Visit Diagnoses Diagnosis Type 2 diabetes mellitus with hemoglobin A1c goal of less than 8.0% ([facility]) documented in this encounter Advance Directives Documents on File Type Date Recorded Patient Chiropractic Practice Manager Expl anation POL 11/30/2021 [place] [facility] FOR LIFE-SUSTAINING TREATMENT Care Teams Quarantine Officer Relationship Specialty Start Date End Date Syed Cleaning PA-C [address] [place], [place] [address] PCP - General Physician Gunsmith Apprentice 11/30/21 documented as of this encounter
--- OUTSIDE RECORDS SUMMARY | 2023-07-23 08:34 | External Medical Summary ---
Author Name Unknown Address Unknown [facility] [address] [place] [id number] Laboratory Report Ordering Provider Test Date Status HY,DEPAMPHILIS 07/07/2023 05:15:00 Final Observation Date Value Abnormality Reference (Units ) Status WBC, Total 07/07/2023 05:15:00 11.61 Above high normal 4 .00-10.80 (K/uL) Final RBC 07/07/2023 05:15:00 4.15 4.50-5.25 (M/uL) Final Hemoglobin 07/07/2023 05:15:00 12.0 Below low normal 14 .0-16.8 (g/dL) Final HCT 07/07/2023 05:15:00 38.0 Below low normal 40. 0-48.4 (%) Final MCV 07/07/2023 05:15:00 91.6 82.0-99.5 (fL) Final MCH 07/07/2023 05:15:00 28.9 27.0-34.0 (pg) Final MCHC 07/07/2023 05:15:00 31.6 32.0-36.0 (g/dL) Final RDW 07/07/2023 05:15:00 12.9 11.5-15.5 (%) Final Platelets 07/07/2023 05:15:00 477 Above high normal 14 0-400 (K/uL) Final MPV 07/07/2023 05:15:00 10.0 6.6-11.1 ( fL) Final [facility] [address] [place] [id number]
--- OUTSIDE RECORDS SUMMARY | 2023-07-23 08:34 | External Medical Summary | Summary of Care ---
Author Name Unknown Organization [facility] Address [address] [place] [address] Phone [phone] Care Team Providers Care Anthropology Department Chair Name Role Phone Syed Booth PA-C Primary Care Provider +1- [phone] Reason for Visit * Reason Onset Date Comments Test Results 07/10/2023 Encounter Details Date Type Department Care Team (Late st Contact Info) Description 07/10/2023 Telephone General Internal Medicine [facility] [address] [place] [address] Syed Booth PA-C [address] [facility] [address] Test Results Allergies Active Allergy Reactions Criticality [...] (OCEAN) 0.65 % nasal spray Administer 1 [place] into nostril as needed for Congestion. 0 [...] mRNA, LNP-s, No Pre serve, 2-Dose Series ([employer]) 11/18/2020,10/28/2020 H1N1 2009 Influenza, IM 11/10/2009 Pneumococcal [...] Pt's daughter(POA) stated he was admitted at [facility] from 06/23-. She also stated that he is still being treated for this uti. Contacted [facility] and awaiting a fax [...] Office Visit General Internal Medicine [place] [facility] [place] 200 [facility] [place] [address] Syed Booth PA-C 200 [facility] [place] [address] Health Maintenance Due Date Last Done Comments [...] Documents on File Type Date Recorded Patient Video Game Tester Expl anation POL 11/30/2021 [facility] FOR LIFE-SUSTAINING TREATMENT Care Teams Anthropology Department Chair Relationship Specialty Start Date End Date Syed Booth PA-C 200 [facility] [place] [address] PCP - General Physician Newspaper Delivery Counselor 11/30/21 documented as of this encounter
[2023-07-23] MEDS: INSULIN ASPART PER UNIT CHARGE SC SCH ×2 (08:35→12:20)
[2023-07-23] MEDS: levoFLOXacin 500 MG TAB PO SCH (08:35)
--- NOTE | 2023-07-23 11:59 | Discharge Summary ---
Date of Service July 23, 2023 Admission HPI Per Admitting Provider Patient is 87 y/o M with PMH HTN, dyslipidemia, DM II, glaucoma, chronic anemia and others listed below presented to ER with c/o UTI and needing IV antibiotics. History obtained from patient, inpatient and outpatient chart review, as well as patient's daughter, Catherine. History [facility], [place] hospitalization 06/25/2023-06/28/2023 for UTI and mechanical fall. 06/25/2023 urine culture + citrobacter koseri that was pansensitive. Initially treated with IV Rocephin and discharged on Augmentin. He was discharged to acute rehab where he had urinary retention and Muhammad catheter was placed. No longer has catheter and patient reports has been urinating without difficulty. He is back at [place]. Daughter states patient previously complained of dysuria. Currently patient denies any dysuria. 07/13/23 Outpatient urine culture +100,000 colonies/mL pseudomonas aeruginosa that is susceptible cefepime, Cipro, levofloxacin, piperacillin tazobactam, tobramycin. Patient allergic to Cipro with rash as reaction. PCP was attempting for outpatient IV antibiotics. Unfortunately, since he in in personal assisted they would not allow for peripheral IV and IV antibiotics and patient was referred to ER for further evaluation and treatment. Patient has been weak since hospitalization and rehab. Prior to hospitalization patient was walking with walker. At rehab he was not eating and refusing to do PT and just wanted to go back to [place]. Now back at [place] and is requiring 2 person lift and wheelchair. A private CYBER ENGINEER has been hired by family to assist in his care per patient's daughter. Daughter states patient has been making some progress since being back at [place] and is eating and drinking now and participating in PT. He is still requiring wheelchair. Patient reports formed this morning. He states he just has generalized weakness and fatigue. Denies fever/chills, diaphoresis, N/V/D/C, VAZ, dizziness, recurrent fall, CP, SOB, palpitations, cough, rhinorrhea, abdominal pain, back pain, extremity edema, rashes, hematuria. Denies current dysuria. Admission Exam Per Admitting Provider General: no acute distress, WDWN elderly male Head: normocephalic, atraumatic Eyes: PERRL, EOM's intact, conjunctiva non-injected, anicteric ENT: normal inspection external ears, nose, mucous membranes slightly dry Neck: supple, trachea midline Lungs: clear, no respiratory distress, no wheezing/rhonchi/rales CV: RRR, no murmur, no pretibial edema Abd: normal BS, soft, non-tender, no CVA tenderness to palpation Ext: no cyanosis, no calf tenderness Neuro: Alert, oriented to person, place, season and year, no focal deficits noted, normal affect Skin: warm, dry Principal Diagnosis Pseudomonas UTI Discharge Exam Constitutional + thin; no acute distress Respiratory normal respiratory effort, lungs clear to auscultation Cardiovascular Rate/Rhythm: regular rate and regular rhythm Vessels: normal peripheral pulses Extremities: no edema Gastrointestinal (Abdomen) Percussion/Palpation: abdomen soft; abdomen nontender Skin no rashes, warm and dry Neurologic no focal motor deficits Psychiatric Orientation: alert and oriented x 3 Affect: + flat affect Discharge Data Allergies Allergy/AdvReac Type Severity Reaction Status Date / Time Cipro Allergy Unknown RASH Verified 11/08/16 14:22 ciprofloxacin Allergy Unknown RASH Verified 05/17/20 08:22 Ordered Studies Laboratory Results WBC 13.54 K/ul (4.8-10.8) H 07/23/23 06:43 RBC 4.45 M/uL (4.70-6.10) L 07/23/23 06:43 Hgb 12.5 g/dl (14.0-18.0) L 07/23/23 06:43 Hct 39.0 % (42.0-52.0) L 07/23/23 06:43 MCV 87.6 fL (80.0-100.0) 07/23/23 06:43 MCH 28.1 pg (25.0-34.0) 07/23/23 06:43 MCHC 32.1 g/dL (32.0-36.0) 07/23/23 06:43 RDW Std Deviation 41.1 fL (36.4-46.3) 07/23/23 06:43 RDW Coeff of Maya 12.9 % (11.5-14.5) 07/23/23 06:43 Plt Count 381 K/uL (130-400) 07/23/23 06:43 MPV 9.7 fL (9.4-12.4) 07/23/23 06:43 Immature Gran % (Auto) 0.8 % 07/23/23 06:43 Neut % (Auto) 65.9 % 07/23/23 06:43 Lymph % (Auto) 19.9 % 07/23/23 06:43 Baldwin % (Auto) 11.8 % 07/23/23 06:43 Eos % (Auto) 1.2 % 07/23/23 06:43 Baso % (Auto) 0.4 % 07/23/23 06:43 Neut # (Auto) 8.93 K/uL (1.40-6.50) H 07/23/23 06:43 Lymph # (Auto) 2.69 K/uL (1.20-3.40) 07/23/23 06:43 Baldwin # (Auto) 1.60 K/uL (0.11-0.59) H 07/23/23 06:43 Eos # (Auto) 0.16 K/uL (0.00-0.50) 07/23/23 06:43 Baso # (Auto) 0.05 K/uL (0.00-0.20) 07/23/23 06:43 Immature Gran # (Auto) 0.11 K/uL (0.01-0.20) 07/23/23 06:43 Sodium 134 mmol/L (136-145) L 07/23/23 06:43 Potassium 4.1 mmol/L (3.5-5.1) 07/23/23 06:43 Chloride 99 mmol/L (98-107) 07/23/23 06:43 Carbon Dioxide 28 mmol/L (21-32) 07/23/23 06:43 Anion Gap 7 (3-11) 07/23/23 06:43 BUN 14 mg/dl (6-23) 07/23/23 06:43 Creatinine 0.99 mg/dl (0.6-1.4) 07/23/23 06:43 Est Cr Clr Drug Dosing 50.7 ml/min 07/23/23 06:43 Est GFR ( Amer) 78.5 ml/min 07/23/23 06:43 Est GFR (Non-Af Amer) 67.7 ml/min 07/23/23 06:43 BUN/Creatinine Ratio 14.1 (10-20) 07/23/23 06:43 Glucose 153 mg/dl (70-99(Fasting)) H 07/23/23 06:43 POC Glucose 209 mg/dl (70-99) H 07/23/23 11:31 Calcium 9.2 mg/dl (8.6-10.3) 07/23/23 06:43 Phosphorus 3.2 mg/dl (2.5-4.9) 07/21/23 06:59 Magnesium 1.9 mg/dl (1.7-2.4) 07/21/23 06:59 Total Bilirubin 0.3 mg/dl (0.2-1.0) 07/20/23 07:02 AST 9 U/L (13-39) L 07/20/23 07:02 ALT 6 U/L (7-52) L 07/20/23 07:02 Alkaline Phosphatase 78 U/L (34-104) 07/20/23 07:02 Total Protein 6.0 gm/dl (6.0-8.3) 07/20/23 07:02 Albumin 2.5 gm/dl (3.4-5.0) L 07/20/23 07:02 Globulin 3.5 gm/dl (2.5-4.0) 07/20/23 07:02 Albumin/Globulin Ratio 0.7 (0.9-2) L 07/20/23 07:02 TSH 3.529 uIu/ml (0.300-4.500) 07/19/23 12:29 Urine Color Yellow 07/21/23 16:50 Urine Appearance Clear (Clear) 07/21/23 16:50 Urine pH 5.5 (4.5-7.5) 07/21/23 16:50 Ur Specific [place] 1.016 (1.000-1.030) 07/21/23 16:50 Urine Protein Negative (Negative) 07/21/23 16:50 Urine Glucose (UA) Negative (Negative) 07/21/23 16:50 Urine Ketones Negative (Negative) 07/21/23 16:50 Urine Blood Negative (Negative) 07/21/23 16:50 Urine Nitrite Negative (Negative) 07/21/23 16:50 Urine Bilirubin Negative (Negative) 07/21/23 16:50 Urine Urobilinogen Negative (Negative) 07/21/23 16:50 Ur Leukocyte Esterase 3+ (Negative) H 07/21/23 16:50 Urine WBC (Auto) >30 /hpf (0-5) H 07/21/23 16:50 Urine RBC (Auto) 0-4 /hpf (0-4) 07/21/23 16:50 U Hyaline Cast (Auto) 1-5 /lpf (0-5) 07/21/23 16:50 U Epithel Cells (Auto) 5-10 /lpf (0-5) H 07/21/23 16:50 Urine Bacteria (Auto) Negative (Negative) 07/21/23 16:50 Hospital Course (1) Acute UTI: (2) Hypomagnesemia: (3) Weakness: (4) HTN (hypertension): (5) Diabetes mellitus, type II: (6) Glaucoma: (7) Chronic anemia: Plan Mr. Rae is an 87 y/o M with PMH HTN, dyslipidemia, DM II, glaucoma, chronic anemia and others listed below presented to ER with c/o UTI and needing IV antibiotics. Unfortunately patient allergic to Cipro and outpatient IV antibiotics were not able be arranged through personal-assisted. ASK-A-DOC documentation in OSH EMR from Dr. Frandy Hackett. "Urine culture on 07/13/2023 Culture Growth >100,000 colonies/mL Pseudomonas aeruginosaAbnormalThis bacterial species is known to produce a chromosomal AmpC inducible beta lactamase. Penicillin or cephalosporin use, with the exception of cefepime, may result in resistance. Resulting Agency: SusceptibilityPseudomonas aeruginosaMICROBROTH DILUTIONS [id number] Piperacillin TazobactamSusceptibleTobramycinSusceptible Recommendations: Please do the following: If this is the above Urine culture you mention there are two oral options noted there. Cipro and Levo. I recommend you chose those to unnecessary IV antibiotics. I see the allergy but it is just a rash. So, recommend taking anti-histamine and oral antibiotic as this antibiotic will be short course only 5-7 days. Thank you." Acute cystitis, Pseudomonas 07/13/23 Outpatient urine culture +100,000 colonies/mL pseudomonas aeruginosa that is susceptible cefepime, Cipro, levofloxacin, piperacillin tazobactam, tobramycin UA with high growth of multiple organisms Repeat Urine Culture no growth In ER given 500ml NSS, cefepime Discontinue cefepime, increase in WBC concern for AMPc induced Pseudo based upon above culture data Trial PO Levofloxacin with PO benadryl beforehand. Seems to be tolerating. Continue Levaquin 500 mg daily for an additional 4 days to complete 7 days of treatment. WBC - 13 K --> 15 K --> 17 K --> 13 K on day of discharge Hypomagnesemia Replaced, resolved Generalized Weakness Generalized weakness since recent hospitalization and rehab stay. Now requiring 2 person assist and wheelchair Fall precautions PT/OT eval Patient and patient's daughters goal is for patient to [facility] . Daughter has already arranged for private CYBER ENGINEER to assist [place] with patient's needs. Receiving PT at [place] Hypertension Chronic, stable Home fosinopril replaced with lisinopril while hospitalized DMTII A1c: 8.1 on 06/25/23 Would allow for more labile control secondary to patient's advanced age Received NovoLog per protocol while hospitalized, resume metformin at discharge Glaucoma Continue home eye drops Chronic normocytic anemia Hgb 12.5, baseline Hgb: 11-12 Total Time Total Time Spent Total Time Spent (In Minutes): 40 Discharge Plan Discharge Items Patient Disposition: Personal [facility] Reason For Visit: UTI Discharge Diagnosis: UTI Activity: Resume your previous activity Non-emergency contact: Primary Care Provider Call non-emergency contact if: you have any medication questions, your symptoms worsen, your pain is not controlled and you have a fever Follow-up/Referrals: Syed Booth PA-C [Outside Practitioners] - (Date & Time 07/26/2023 9:20 AM Provider Syed Booth PA-C Department General Internal Medicine [facility] ) Diet: Carb Consistent or DM2 Addtl Attending Provider Instructions: Patient presented with complaints of UTI. Per outpatient ID recommendations, patient was started on p.o. levofloxacin with p.o. Benadryl before hand due to history of ciprofloxacin allergy. Patient is tolerating well. Will discharge on p.o. Levaquin 500 mg daily for an additional 4 days to complete 7 days of therapy. Next dose on 07/24. It was a pleasure taking care of you. If you need to reach a member of the [facility] hospitalist team at [facility], please call [phone]. GERALDO Somers Pending Studies at Discharge: No Stand-Alone Forms: My [facility], Smoking Cessation Skilled Items Patient informed of condition?: Yes DNR: Yes Discharge Level of Care: Other Communicable Disease: No Discharge Prognosis: Stable Lines: None Urinary Catheter: No Medications and DC Order Prescriptions: New diphenhydramine HCl [Benadryl] 25 mg Capsule 25 mg PO TODAY@0830 Qty: 4 0RF levofloxacin 500 mg Tablet 500 mg PO DAILY Qty: 4 0RF Continued fosinopril 10 mg tablet 5 mg PO DAILY Rx Instructions: HOLD FOR SBP<=90 latanoprost 0.005 % drops 1 drp OPL HS timolol maleate 0.5 % drops 1 drp OPB BID dorzolamide 2 % drops 1 drp OPL BID escitalopram oxalate 10 mg tablet 10 mg PO DAILY brimonidine 0.2 % drops 1 drp OPB BID diphenoxylate-atropine 2.5-0.025 mg Tablet 1 tab PO QAM acetaminophen 325 mg Tablet 650 mg PO Q6 PRN (Reason: Pain) cyanocobalamin (vitamin B-12) [Vitamin B-12] 1,000 mcg Tablet 1,000 mcg PO DAILY metformin 1,000 mg tablet 1,000 mg PO BID Discharge Orders: Discharge Order (Routine); Ordered 07/23/23 Ordered By: Fabby Daniels Admission Data Admit Date/Time: 07/19/23 14:10 Attending Provider: Barbara Adler Admit Provider: Gaby Bustamante Primary Care Provider: Redd Sommers Other Providers: Gaby Bustamante Other Interventions: Discharge Summary Assessment (RN) Last Done: 07/23/23 11:29 Supervising Physician Co-Signing Physician Notes I have seen and examined the patient and have discussed the case with the provider above. I agree with the assessment and plan as stated. Mr. Rae is an 87 yo M admitted for treatment of UTI. He lives at [facility]. Reports eating and drinking without issue.Currently, he is on Levofloxacin for UTI. He is alert and oriented to person, place and time. WBC trending down. Continue 7 day course of po levofloxacin. Discharge as above back to [place].
== END 2023-07-23 13:28 | disposition home or self-care (01) | DRG 690 ==
LOC: ED 10:26 → EDINP 14:10 → SUATTDRO 14:10 → 3N 18:25